=== PATIENT | male | born 1940 | race Caucasian/White ===

== ENCOUNTER 2023-05-27 13:24 | Emergency (ER) | payer MEDICARE, OTHER, SELFPAY ==
[2023-05-27] VITALS (10 sets, daily range): BP systolic 125–207; BP diastolic 78–114
[2023-05-27 14:34] LABS: % Basophils 0.7 % (0-2); % Eosinophils 1.1 % (0-6); % Immature Granulocytes 0.3 % (0-0.5); % Lymphocytes 12.7 % (20.5-51.1); % Monocytes 10.6 % (1.7-9.3); % Neutrophils 74.6 % (42.2-75.2); Absolute Basophils 0.1 10^3/uL (0-0.2); Absolute Eosinophils 0.1 10^3/uL (0-0.7); Absolute Lymphocytes 0.9 10^3/uL (1.2-3.4); Absolute Monocytes 0.7 10^3/uL (0.1-0.6); Absolute Neutrophils 5.2 10^3/uL (1.4-6.5); Hematocrit 42.1 % (39.0-52.0); Hemoglobin 14.1 g/dL (13.0-18.0); Mean Corp Hgb Conc. 33.5 g/dL (33.0-37.0); Mean Corpuscular Hgb 30.6 pg (27.0-31.0); Mean Corpuscular Volume 91.3 fL (80.0-94.0); Nucleated Red Blood Cells % 0 % (-); Platelet Count 197 10^3/uL (130-400); Red Blood Cell Count 4.61 10^6/uL (4.70-6.10); Red Cell Dist. Width 14.2 % (11.5-14.5)
[2023-05-27 14:57] LABS: ALT (SGPT) 18 U/L (0-50); AST (SGOT) 27 U/L (17-59); Albumin 4.3 g/dl (3.5-5.0); Alkaline Phosphatase 102 U/L (38-126); Blood Urea Nitrogen 29 mg/dl (9-20); Calcium 9.3 mg/dl (8.4-10.2); Carbon Dioxide 29 mmol/L (22-30); Chloride 105 mmol/L (98-107); Glucose 136 mg/dl (70-99); Sodium 141 mmol/L (135-145); Total Bilirubin 0.9 mg/dl (0.2-1.3); Total Protein 7.6 g/dl (6.3-8.2); eGFR 50.81
[2023-05-27 15:10] LABS: Troponin I 0.164 ng/ml
--- NOTE | 2023-05-27 17:13 | ED.GENMED ---
History of Present Illness
General
Chief Complaint: Blood Pressure Problem
Time Seen by Provider: 05/27/23 16:16
Travel History
Have you had any contact with someone who has COVID-19?: No
Do you have any symptoms of coronavirus? Fever > 100 degrees, chills, cough, shortness of breath, sore throat, loss of taste or smell, muscle aches, or headache?: No
History of Present Illness
History of Present Illness:
82-year-old male with history of A-fib, chronic congestive heart failure, yhm-dijxhri-[id number] diabetes, carotid stenosis status post bilateral carotid stents presents to the emergency department for evaluation of able undetectably low blood
pressure at his esc[facility] closer office today. Presented for routine endocrine appointment for blood pressure was profoundly low. The patient states he felt fine and had no dizziness or near syncope at that time. Similar event occurred in 2 months
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 The patient currently feels fine and has no complaints
Past History
Past History
ED Past Medical History: Arrthythmia, CAD, NIDDM and Other (Brain aneurysm)
ED Past Surgical History: Brain and Cardiac
Social History
Employment: Employed
Review of Systems
Review of Systems
Allergies reviewed?: Yes
All Other Systems: ROS reviewed and negative except as documented in HPI and ROS
Phy Exam
Physical Exam
Physical Exam:
GEN: Well appearing, NAD, WDWN
HEENT: Oral mucosa moist, no scleral icterus
Cardiac: Regular rate and rhythm, no murmurs
Lung: No respiratory distress, no tachypnea
MSK: No gross deformity or injuries
Skin: Good color, no pallor or jaundice, no rashes
Neuro: AO x3, moves all extremities freely
Psych: Calm, cooperative
Course
Orders/Labs/Results
Orders:
Orders
05/27/23 14:04
Electrocardiogram (*1) Urgent
Reason for Study: Chest Pain
EKG- Treatment ONCE
05/27/23 14:19
Complete Blood Count/With Diff Urgent
Comprehensive Metabolic Panel Urgent
TSH Reflex To Free T4 Urgent
Comment: ADD ON
Troponin I Urgent
05/27/23 16:50
Add On- LAB Urgent
Tests Added?: TSH w reflex
05/27/23 17:09
Troponin I Urgent
Abnormal Lab Results
05/27/23 05/27/23
14:19 17:09
RBC 4.61 L 10^6/uL
(4.70-6.10)
MPV 11.0 H fL
(7.4-10.4)
Absolute Lymphs (auto) 0.9 L 10^3/uL
(1.2-3.4)
Absolute Monos (auto) 0.7 H 10^3/uL
(0.1-0.6)
Lymphocytes % 12.7 L %
(20.5-51.1)
Monocytes % 10.6 H %
(1.7-9.3)
BUN 29 H mg/dl
(9-20)
Creatinine 1.4 H mg/dL
(0.7-1.3)
Glucose 136 H mg/dl
(70-99)
Troponin I 0.164 H* ng/ml 0.162 H* ng/ml
05/27/23 14:19
05/27/23 14:19
Vital Signs
Initial and Last Documented VS:
Initial Vital Signs
Temp Pulse Resp BP Pulse Ox
98.0 F 78 18 125/88 98
05/27/23 14:03 05/27/23 14:03 05/27/23 14:03 05/27/23 14:03 05/27/23 14:03
Last Documented Vital Signs
Temp Pulse Resp BP Pulse Ox
98.0 F 66 22 162/78 98
05/27/23 14:03 05/27/23 20:00 05/27/23 20:00 05/27/23 20:00 05/27/23 14:03
MDM/Problems Addressed
MDM/Problems Addressed:
Patient been clinically stable and asymptomatic emergency department. His blood pressure was noted to be quite elevated in the ER. We did contact [email or web address] for pacemaker interrogation, they are not able to facilitate this at this time however the
patient does have upcoming cardiology follow-up in 2 days and they will arrange for pacer interrogation to be sure that his low blood pressure from earlier today was not correlating with a cardiac dysrhythmia
*Critical Care Note
Total Time (30-74mins, 75-104mins- exclusive of procedures): Not Applicable
ED Attending Note
-
Portions of this chart may have been created with voice recognition software.� Occasional wrong word or��sound alike� substitutions may have occurred due to the inherent limitations of voice recognition software.
Discharge Plan
Departure
Patient Disposition: Home (Routine Discharge)
Date of Disposition: 05/27/23
Time of Disposition: 19:39
Patient with high blood pressure during this ER visit?: Yes
Discharge Problem:
Elevated troponin level not due myocardial infarction
Instructions: BLOOD PRESSURE
Prescriptions:
No Action
isosorbide dinitrate 10 mg Tablet
10 mg PO TID
atorvastatin 40 mg Tablet
40 mg PO QPM
carvedilol 25 mg Tablet
25 mg PO BID
amiodarone 200 mg Tablet
200 mg PO DAILY
famotidine 40 mg Tablet
40 mg PO DAILY
hydralazine 25 mg Tablet
25 mg PO TID
spironolactone 25 mg Tablet
25 mg PO Q48H@0800
repaglinide 1 mg Tablet
1 mg PO BID
ezetimibe 10 mg Tablet
10 mg PO DAILY
Eliquis 2.5 mg Tablet
2.5 mg PO BID
metformin 1,000 mg Tablet
1,000 mg PO BID
clopidogrel [Plavix] 75 mg Tablet
75 mg PO DAILY
Referrals:
Vicky Thomas, DO [Family Provider] -
Activity Restrictions/Additional Instructions:
Discuss your elevated blood pressure with Dr Albright on Thursday
Interventions
Interventions:
*Risk Screen - Suicide Last Done: 05/27/23 16:49
*General Assessment Last Done: 05/27/23 16:49
*Neglect/Abuse Screening Last Done: 05/27/23 16:49
ED- Fall Risk Assessment Last Done: 05/27/23 20:25
*ED COVID-19 Vaccine History Last Done: 05/27/23 20:25
*Nursing Disposition Last Done: 05/27/23 20:59
ED- Cardiac Assessment Last Done: 05/27/23 16:49
ED- Neurological Assessment Last Done: 05/27/23 16:49
ED- Pulmonary Assessment Last Done: 05/27/23 16:49
Discharge Date and Time
Discharge Date/Time: 05/27/23 21:00
[2023-05-27 17:48] LABS: Troponin I 0.162 ng/ml
[2023-05-27 19:06] LABS: TSH Reflex To Free T4 1.57 uIU/ml (0.47-4.68)
== END 2023-05-27 21:00 | disposition home or self-care (01) ==
LOC: EMR 13:24
PROVIDERS: Emergency Medicine; EMERGENCY PHYSICIAN Student in an Organized Health Care Education/Training Program; FAMILY PHYSICIAN Internal Medicine
DX: R79.89 Other specified abnormal findings of blood chemistry (principal); I50.9 Heart failure, unspecified; E11.9 Type 2 diabetes mellitus without complications
CPT/HCPCS: 99284; 80053; 84443; 84484; 85025; 93005

== ENCOUNTER 2023-07-21 13:29 | Outpatient (RCR) | payer MEDICARE, OTHER, SELFPAY | END 2023-07-21 23:59 | disposition home or self-care (01) | LOC: RPT 13:29 | PROVIDERS: ATTENDING PHYSICIAN Internal Medicine | DX: R26.2 Difficulty in walking, not elsewhere classified (principal); Z73.6 Limitation of activities due to disability; R26.89 Other abnormalities of gait and mobility; M62.81 Muscle weakness (generalized) | CPT/HCPCS: 97110; 97112; 97163; 97530 ==

== ENCOUNTER 2023-08-13 13:47 | Outpatient (RCR) | payer MEDICARE, OTHER, SELFPAY | END 2023-08-13 23:59 | disposition home or self-care (01) | LOC: RPT 13:47 | PROVIDERS: ATTENDING PHYSICIAN Internal Medicine | DX: R26.81 Unsteadiness on feet (principal); R42 Dizziness and giddiness; Z73.6 Limitation of activities due to disability | CPT/HCPCS: 97110; 97112; 97530 ==

== ENCOUNTER 2023-08-13 20:47 | Inpatient (IN) | payer MEDICARE, OTHER, SELFPAY ==
[2023-08-13] VITALS (24 sets, daily range): BP systolic 161–203; BP diastolic 85–122; PULSE 54–56; BMI 27.6
[2023-08-13 14:15] LABS: % Basophils 0.4 % (0-2); % Eosinophils 0.3 % (0-6); % Immature Granulocytes 0.3 % (0-0.5); % Monocytes 9.1 % (1.7-9.3); % Neutrophils 78.9 % (42.2-75.2); Absolute Lymphocytes 0.8 10^3/uL (1.2-3.4); Absolute Monocytes 0.7 10^3/uL (0.1-0.6); Absolute Neutrophils 5.7 10^3/uL (1.4-6.5); Hematocrit 36.3 % (39.0-52.0); Hemoglobin 11.7 g/dL (13.0-18.0); Mean Corp Hgb Conc. 32.2 g/dL (33.0-37.0); Mean Corpuscular Hgb 30.5 pg (27.0-31.0); Mean Corpuscular Volume 94.8 fL (80.0-94.0); Mean Platelet Volume 11.5 fL (7.4-10.4); Nucleated Red Blood Cells % 0 % (-); Platelet Count 164 10^3/uL (130-400); Red Blood Cell Count 3.83 10^6/uL (4.70-6.10); Red Cell Dist. Width 15.4 % (11.5-14.5); White Blood Cell Count 7.2 10^3/uL (4.8-10.8)
[2023-08-13 14:30] LABS: ALT (SGPT) 21 U/L (0-50); AST (SGOT) 25 U/L (17-59); Albumin 4.2 g/dl (3.5-5.0); Alkaline Phosphatase 103 U/L (38-126); Blood Urea Nitrogen 28 mg/dl (9-20); Calcium 9.3 mg/dl (8.4-10.2); Carbon Dioxide 25 mmol/L (22-30); Chloride 110 mmol/L (98-107); Glucose 172 mg/dl (70-99); Potassium 4.4 mmol/L (3.5-5.1); Sodium 144 mmol/L (135-145); Total Bilirubin 2.1 mg/dl (0.2-1.3); Total Protein 7.3 g/dl (6.3-8.2); eGFR 55.19
[2023-08-13 18:07] LABS: NT-proBNP 25400 pg/ml
[2023-08-13] MEDS: LASIX 40 MG IV (19:21)
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
--- NOTE | 2023-08-13 19:34 | ED.GENMED ---
History of Present Illness
General
Chief Complaint: Weakness
Source: patient
Exam Limitations: none
Time Seen by Provider: 08/13/23 17:13
Nursing documentation reviewed up to this point in time: agreed with
Travel History
Have you had any contact with someone who has COVID-19?: No
Do you have any symptoms of coronavirus? Fever > 100 degrees, chills, cough, shortness of breath, sore throat, loss of taste or smell, muscle aches, or headache?: No
History of Present Illness
History of Present Illness:
83-year-old male with past medical history of atrial fibrillation and diabetes who presents to the emergency room with his for evaluation of shortness of breath and hypertension. Patient reports that he was doing physical therapy today and
noticed that he was getting more fatigued and short of breath than typical with the exercises. He told this to the therapist who sat him down and checked his vital signs and noted that he was severely hypertensive to the 190s. They consulted with
his primary physician who recommended he go to the emergency room to be assessed. He has not had any chest pain. He denies any coughing. He has chronic mild edema no worse than usual. He denies any other complaints. He denies any known history
of heart failure. He does follow with Dr. Albright at [facility] for cardiology typically.
Past History
Past History
ED Past Medical History: Arrthythmia, CAD, NIDDM and Other (Brain aneurysm)
ED Past Surgical History: Brain and Cardiac
Social History
Employment: Employed
Review of Systems
Review of Systems
All Other Systems: ROS reviewed and negative except as documented in HPI and ROS
Constitutional: Reports fatigue; Denies fever or chills
EENT: Denies sore throat or runny nose
Respiratory: Reports trouble breathing; Denies cough
Cardiac: Denies chest pain, palpitations or syncope
ABD/GI: Denies abdominal pain, nausea or vomiting
: Denies flank pain
Musculoskeletal: Reports edema; Denies neck pain or back pain
Neurological: Denies headache, weakness or numbness
Phy Exam
Physical Exam
Physical Exam:
General: Awake, alert, oriented x3; no acute distress
Head: Normocephalic, atraumatic
Eyes: Conjunctiva normal, sclera anicteric
Throat: Airway intact, handling secretions
Neck: Trachea midline, no JVD noted
Lungs: Rales at the lung bases bilaterally; hypoxic to 80% requiring 2 L nasal cannula
Heart: Regular rate and rhythm, faint systolic murmur
Abd: Soft, non distended, nontender
Neuro: Cranial nerves grossly intact, speech fluid
Skin: no rash
Extremities: Patient has +1 pitting edema in the lower extremities bilaterally; distal extremities are warm and well-perfused
Scores
Heart Failure Risk
Heart Failure Risk Score: Yes
History of Stroke or TIA: No
History of intubation for respiratory distress: No
Heart rate on ED arrival >/= 110: No
SaO2 <90% on arrival on room air: Yes
HR >/=110 during 3min walk test (or too ill to perform test): Yes
ECG has acute ischemic changes: No
Urea >/=12mmol/L (BUN 33.6mg/dL): No
Serum CO2>/=35mmol/L: No
Troponin I or T elevated to [place] Level (0.4mg/dL): No
NT-proBNP >/=5,000ng/L (5,000pg/ml): Yes
HF Risk Score: 4
Admission Status: HIGH RISK 26.1% Consider SNF treatment or admission to hospital
Heart Score for Chest Pain Patients
STEMI patient?: Not applicable
Withdrawal Assessment of Alcohol
Withdrawal Assessment Completed?: Not applicable
Course
Orders/Labs/Results
Orders:
Orders
08/13/23 13:42
Electrocardiogram (*1) Urgent
Reason for Study: Fatigue / Weakness
EKG- Treatment ONCE
08/13/23 14:01
Complete Blood Count/With Diff Urgent
Comprehensive Metabolic Panel Urgent
08/13/23 17:13
CR Chest - 2 Views Urgent
Comment:
Reason For Exam: sob
08/13/23 17:25
NT-proBNP Urgent
08/13/23 18:41
Furosemide [Lasix] 40 mg IV NOW STA
Nitroglycerin 100 mg/250 ml [Nitroglycerin Premix] 100 mg in 250 ml IV NOW
Initial dose in mcg/min, then titrate:: 5
Titrate to keep:: SBP < 160 mmHg
Titrate by mcg/min:: 5 mcg/min, may increase by 10 mcg/min if dose > 20 mcg/min
Frequency of titrations (minutes):: every 3-5 minutes
Maximum dose in mcg/min:: 200
Begin to taper infusion when:: Remained at goal for 2hrs
Taper by mcg/min:: 5 mcg/min
Frequency of taper (minutes) if patient maintains goal:: 30
Taper to off?: Yes
If infusion off & no longer maintaining goal:: Contact Provider
Abnormal Lab Results
08/13/23
14:01
RBC 3.83 L 10^6/uL
(4.70-6.10)
Hgb 11.7 L g/dL
(13.0-18.0)
Hct 36.3 L %
(39.0-52.0)
MCV 94.8 H fL
(80.0-94.0)
MCHC 32.2 L g/dL
(33.0-37.0)
RDW 15.4 H %
(11.5-14.5)
MPV 11.5 H fL
(7.4-10.4)
Absolute Lymphs (auto) 0.8 L 10^3/uL
(1.2-3.4)
Absolute Monos (auto) 0.7 H 10^3/uL
(0.1-0.6)
Neutrophils % 78.9 H %
(42.2-75.2)
Lymphocytes % 11.0 L %
(20.5-51.1)
Chloride 110 H mmol/L
(98-107)
BUN 28 H mg/dl
(9-20)
Glucose 172 H mg/dl
(70-99)
Total Bilirubin 2.1 H mg/dl
(0.2-1.3)
08/13/23 14:01
08/13/23 14:01
Vital Signs
Initial and Last Documented VS:
Initial Vital Signs
Temp Pulse Resp BP Pulse Ox
37.1 C 78 16 183/100 98
08/13/23 13:39 08/13/23 13:39 08/13/23 13:39 08/13/23 13:39 08/13/23 13:39
Last Documented Vital Signs
Temp Pulse Resp BP Pulse Ox
36.7 C 68 18 186/107 93
08/13/23 19:20 08/13/23 19:21 08/13/23 19:20 08/13/23 19:21 08/13/23 19:28
MDM/Problems Addressed
Differential Diagnosis Includes:
Hypertensive crisis, symptomatic anemia, CHF, pneumonia
MDM/Problems Addressed:
83-year-old male presents for evaluation of shortness of breath and fatigue today associated with severe hypertension. He arrives to us severely hypertensive to 190/100 with hypoxia to 88% requiring 2 L nasal cannula. Physical exam as above. Plan
to place an IV check labs including CBC and CMP, BNP. Will check chest x-ray and EKG. Will monitor closely reassess after the above.
Labs reviewed: CBC shows mild anemia which appears to be essential. His CMP shows no clinically significant abnormalities. His proBNP is greater than 25,000. Chest x-ray shows findings consistent with mild volume overload. Patient remains
severely hypertensive will start on nitroglycerin for blood pressure control. Will provide dose of IV Lasix. Will admit for continued management of hypertensive crisis and acute CHF. Discussed with hospitalist for admission.
Chronic conditions affecting care:
Hypertension
Acute Exacerbation and/or Progression of Chronic Illness:
Hypertensive crisis managed with nitroglycerin
Acute Exacerbation and/or Progression of Chronic Illness: HTN
*Radiology
Radiology exam reviewed: preliminary read by ED provider
*Pulse Oximetry
Patient hypoxic: yes
*EKG
Interpreted by ED Provider?: Yes
Heart Rate: 73
Rate: normal
Rhythm: sinus
[place]: normal axis
Interval: normal interval
QRS Pattern: normal QRS
Ischemia: T-wave inversion (Inferior)
*Critical Care Note
Total Time (30-74mins, 75-104mins- exclusive of procedures): Not Applicable
Data Reviewed
Review of Other/Old Records Reveals: Labs and Records
Source: patient and spouse
Patient Management
Discussion with other providers: Hospitalist (Discussed with hospitalist)
Escalation/DeEscalation of care consider admission/obs:
Admission indicated
ED Attending Note
-
Portions of this chart may have been created with voice recognition software.� Occasional wrong word or��sound alike� substitutions may have occurred due to the inherent limitations of voice recognition software.
Discharge Plan
Departure
Patient Disposition: Admit
Date of Disposition: 08/13/23
Time of Disposition: 18:45
Admit to doctor: Saurabh
Presentation/result/management discussed w/ accepting MD/DO: Hospitalist
Discharge Problem:
CHF (congestive heart failure), Hypertensive crisis
Prescriptions:
No Action
atorvastatin 40 mg Tablet
40 mg PO QPM
carvedilol 25 mg Tablet
25 mg PO BID
amiodarone 200 mg Tablet
200 mg PO DAILY
famotidine 40 mg Tablet
40 mg PO DAILY
repaglinide 1 mg Tablet
1 mg PO BID
ezetimibe 10 mg Tablet
10 mg PO DAILY
Patient Comments:
08/13/2023, last filled on 03/09/2023 for 90-day supply.
Eliquis 2.5 mg Tablet
2.5 mg PO BID
metformin 1,000 mg Tablet
1,000 mg PO BID
Patient Comments:
08/13/2023, last filled on 03/06/2023 for 90-day supply.
clopidogrel [Plavix] 75 mg Tablet
75 mg PO DAILY
fluoride (sodium) [PreviDent 5000 Booster Plus] 1.1 % Paste
1 applic DENTAL DAILY
Entresto 49-51 mg Tablet
1 tab PO Q12H
Referrals:
UNKNOWN - PT DOES,NOT KNOW [Family Provider] -
Interventions
Interventions:
*Risk Screen - Suicide Last Done: 08/13/23 17:12
*General Assessment Last Done: 08/13/23 17:12
*Neglect/Abuse Screening Last Done: 08/13/23 17:12
ED- Fall Risk Assessment Last Done: 08/13/23 17:14
*ED COVID-19 Vaccine History Last Done: 08/13/23 13:39
ED- Cardiac Assessment Last Done: 08/13/23 19:27
ED- Neurological Assessment Last Done: 08/13/23 19:27
ED- Pulmonary Assessment Last Done: 08/13/23 19:28
Discharge Date and Time
Print Language: BENGALI
[2023-08-13] MEDS: NITROGLYCERIN PREMIX 250 IV (19:37)
--- NOTE | 2023-08-13 20:21 | W.PN.UPDATE ---
Update Note
Progress Note Update
This serves as an addendum to H&P written by CIVIL CAD TECH Margaret Shannon
I saw and examined the patient.
The CIVIL CAD TECH's note was reviewed and I agree with the note.
Comment:
Mr. Elia Marie is a 83 yo man with hx CAD s/p PCI, afib on Eliquis, PPM, DM 2, brain aneurysm, infrarenal abdominal aortic aneurysm, hx BASIN OPERATOR shunt sent to the ER from cardiac rehab for low pulse ox and report of pain in legs when walking. He
currently denies chest pain or shortness of breath. States b/l LE swelling chronic. States he is always on Eliquis 2.5mg PO BID
Triage VS: T 37.1C, P 78, RR 16, BP 183/100, SpO2 98%
On exam patient has flat affect, in no acute distress, + bilateral rales and JVP, b/l LE swelling
LABS: WBC 7.2, Hg 11.7, PLT 164, Na 144, K+ 4.4, Cl 110, CO2 25, BUN 28, Cr 1.3, Glucose 172
BNP 75689
EKG: NSR @ 73, prolonged Qtc @ 524, TWI III, AvF
CXR - small bilateral pleural effusion (my read
Acute Heart Failure exacerbation
Acute Hypoxic Respiratory Insufficiency
-s/p Lasix 40mg IV in ER
-admit to tele
-strict I/O, daily weights, fluid restriction
-TTE
-cardiology consult
-trend Troponins
Hypertensive Emergency
-patient started on a nitro gtt in the ER
-will resume his MANAGER FLORAL medications now including Coreg, Entresto and wean nitro discussed with nursing
Lower Extremity Pain with Walking
-will obtain arterial US
Paroxysmal Atrial Fibrillation
Hx PPM
-MANAGER FLORAL Coreg
-MANAGER FLORAL Eliquis - although patient is over 80 yo. His body weight is > 60kg and creatinine < 1.5. I will therefore increase dosing to 5mg PO BID.
DM 2
-hold MANAGER FLORAL metformin for now
-continue MANAGER FLORAL Prandin
-ISS low
-diabetic diet
76 minutes spent on patient evaluation, coordination of care
[2023-08-13] MEDS: ENTRESTO 49 MG/51 MG 1 TAB PO ×2 (21:18→22:02)
[2023-08-13] MEDS: ELIQUIS 5 MG PO (21:18)
[2023-08-13 21:19] LABS: Troponin I 0.361 ng/ml
[2023-08-13] MEDS: COREG 25 MG PO ×2 (21:20→22:01)
[2023-08-13 21:45] LABS: Glucose - Point of Care 133 mg/dl (70-99)
[2023-08-13] MEDS: ENTRESTO 49 MG/51 MG PO ×2 (22:01→23:19)
[2023-08-13] MEDS: ELIQUIS 2.5 MG PO (22:01)
[2023-08-13] MEDS: ELIQUIS PO ×2 (22:01→22:02)
[2023-08-13] MEDS: COREG PO ×2 (22:01→23:17)
--- NOTE | 2023-08-13 23:37 | PTCARENOTE ---
Rec'd pt from ED AAOx3 w/no c/o CP or SOB; Pt able to stand & pivot w/1P contact guard assistance to the bed from stretcher. Pt/ BP 203/120 on arrival to floor w/HR in the 80's. IV Nitro drip infusing as MD ordered through patent R FA IV line. Pt
V-paced on telemetry monitoring. Pt's son and daughter at bedside to assist w/admission questions. Family unaware of pt's PMH of CHF; CHF education booklet given to pt & family. CHF education started w/pt & his adult children for reinforcement. CHF
videos ordered for pt to review. Pt w/call bender within reach & plan of care ongoing.
[2023-08-14] VITALS (15 sets, daily range): BP systolic 127–180; BP diastolic 70–105; PULSE 61–111; O2SAT 98; BMI 27.7
--- NOTE | 2023-08-14 00:55 | PTCARENOTE ---
Pt received (2) doses of Entresto, Coreg, & Eliquis this evening. Nitroglycerin IV drip weaned off by 2340. Pt's VS stable, BP 152/87, HR 50's-60's w/pt V-paced on roof fitter. Admitting Dr iWley advised. All three meds on hold at this time.
Plan of care ongoing.
[2023-08-14 03:42] LABS: % Basophils 0.5 % (0-2); % Eosinophils 1.2 % (0-6); % Immature Granulocytes 0.5 % (0-0.5); % Monocytes 8.6 % (1.7-9.3); % Neutrophils 75.2 % (42.2-75.2); Absolute Eosinophils 0.1 10^3/uL (0-0.7); Absolute Lymphocytes 0.9 10^3/uL (1.2-3.4); Absolute Monocytes 0.5 10^3/uL (0.1-0.6); Absolute Neutrophils 4.6 10^3/uL (1.4-6.5); Hematocrit 32.5 % (39.0-52.0); Hemoglobin 11.1 g/dL (13.0-18.0); Mean Corp Hgb Conc. 34.2 g/dL (33.0-37.0); Mean Corpuscular Hgb 30.7 pg (27.0-31.0); Mean Corpuscular Volume 89.8 fL (80.0-94.0); Mean Platelet Volume 11.5 fL (7.4-10.4); Nucleated Red Blood Cells % 0 % (-); Platelet Count 144 10^3/uL (130-400); Red Blood Cell Count 3.62 10^6/uL (4.70-6.10); Red Cell Dist. Width 15.1 % (11.5-14.5); White Blood Cell Count 6.1 10^3/uL (4.8-10.8)
[2023-08-14 04:17] LABS: ALT (SGPT) 18 U/L (0-50); AST (SGOT) 23 U/L (17-59); Albumin 3.6 g/dl (3.5-5.0); Alkaline Phosphatase 82 U/L (38-126); Blood Urea Nitrogen 26 mg/dl (9-20); Calcium 8.9 mg/dl (8.4-10.2); Carbon Dioxide 25 mmol/L (22-30); Chloride 109 mmol/L (98-107); Estimated Creatinine Clearance 64 ml/min; Glucose 177 mg/dl (70-99); HDL Cholesterol 48 mg/dl; LDL Cholesterol, Calculated 56 mg/dl; Potassium 3.3 mmol/L (3.5-5.1); Sodium 143 mmol/L (135-145); Total Cholesterol 119 mg/dl (50-199); Total Protein 6.6 g/dl (6.3-8.2); Triglyceride 77 mg/dl (10-149); Very Low Density Lipoprotein 15 mg/dl (0-30); eGFR > 60.00
[2023-08-14 04:20] LABS: Troponin I 0.339 ng/ml
[2023-08-14 09:16] LABS: Glucose - Point of Care 120 mg/dl (70-99)
[2023-08-14] MEDS: LASIX 40 MG IV (09:47)
[2023-08-14] MEDS: PEPCID 40 MG PO (09:47)
[2023-08-14] MEDS: PACERONE 200 MG PO (09:47)
[2023-08-14] MEDS: ZETIA 10 MG PO (09:47)
[2023-08-14] MEDS: PRANDIN 1 MG PO ×2 (09:47→15:02)
[2023-08-14 10:28] LABS: Troponin I 0.265 ng/ml
[2023-08-14 11:10] LABS: Glucose - Point of Care 141 mg/dl (70-99)
--- NOTE | 2023-08-14 11:10 | CON.CAR ---
Addendum entered and electronically signed by Tristan Gilliam MD 08/14/23 12:20:
I saw and examined the patient.
The [employer]'s note was reviewed and I agree with the note.
Comment: 83M with possible CM (on GDMT) with severe hypertension presenting with hypoxia. Denies dyspnea.
- Check echo
- Diurese
- unclear antiplatelet/anticoagulant strategy. Presumably clopidogrel is for PCI in August 2022 and apixaban for persistent AF. But AF dose is incorrect. I would move to single agent NOAC August 2023 (12 months)
Original Note:
Consultation
Consultation Request
Date/Time Consultation Requested: 08/14/23 7a
Date/Time Consultation Performed: 08/14/23 10:45a
Requesting Provider: Dr. Wiley
Performing Provider: FRANCK Alvarado for Dr. Gilliam
Reason for Consultation: HTN/HFpEF
Medical History
-
Chief Complaint: pain in legs
History of Present Illness:
Mr. Marie is an 83 yo male (followed by sql server bi developer Dr. Albright) with CAD s/p PCI 08/2022, paroxysmal Afib s/p CV 09/2022 on Amiodarone and Eliquis 2.5mg BID, PPM Biotronik, PAD with CEA, infrarenal abd aortic aneurysm, brain aneurysm 6 years ago
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 He denies any SOB or RUSHING during PT. His CXR shows cardiomegaly and small pleural effusions to suggest mild CHF. He is noted
to be hypertensive as well. He is admitted to the hospitalist service and we are consulted for acute HFpEF and hypertensive emergency.
Past Medical History
Past Medical History: Other (as above)
Past Surgical History: Other (as above)
Social History
Tobacco: Non-Smoker
Alcohol: None
Personal:
Living: With Family
Employment: Retired
Family History
Family History: Reviewed & Not Pertinent
Allergies / Home Medications
Allergy/AdvReac Type Severity Reaction Status Date / Time
No Known Allergies Allergy Verified 08/13/23 13:41
�Medication �Instructions �Recorded �Confirmed �Type
amiodarone 200 mg tablet 200 mg PO DAILY Heart 03/02/23 08/13/23 History
Disease/Condition
apixaban 2.5 mg tablet (Eliquis) 2.5 mg PO BID Blood Clot 03/02/23 08/13/23 History
Prevention/Tx
atorvastatin 40 mg tablet 40 mg PO QPM High Cholesterol 03/02/23 08/13/23 History
carvedilol 25 mg tablet 25 mg PO BID Heart 03/02/23 08/13/23 History
Disease/Condition
ezetimibe 10 mg tablet 10 mg PO DAILY High Cholesterol 03/02/23 08/13/23 History
famotidine 40 mg tablet 40 mg PO DAILY Gastrointestinal 03/02/23 08/13/23 History
Issue
repaglinide 1 mg tablet 1 mg PO BID Diabetes 03/02/23 08/13/23 History
metformin 1,000 mg tablet 1,000 mg PO BID Diabetes 04/09/23 08/13/23 History
clopidogrel 75 mg tablet (Plavix) 75 mg PO DAILY 05/27/23 08/13/23 History
fluoride (sodium) 1.1 % dental 1 applic dental DAILY 08/13/23 08/13/23 History
paste (PreviDent 5000 Booster Plus)
sacubitril 49 mg-valsartan 51 mg 1 tab PO Q12H Heart 08/13/23 08/13/23 History
tablet (Entresto) Disease/Condition
Review of Systems
-
History Source: Patient
All other systems: Negative unless noted
Physical Exam
Vital Signs
Temp Pulse Resp BP Pulse Ox
97.8 F 60 18 151/81 92
08/14/23 11:05 08/14/23 09:47 08/14/23 11:05 08/14/23 09:47 08/14/23 11:05
Lab Results
08/14/23 03:32
08/14/23 03:32
Troponin I 0.265 ng/ml H* 08/14/23 09:45
Sff-U-Krfclsdqzmd Pept 49106 pg/ml 08/13/23 17:25
Physical Exam
General: Well Developed, Well Nourished and No Apparent Distress
HEENT: Normocephalic, Anicteric and Moist Mucous Membranes
Respiratory: Crackles (bibasilar)
Cardiac: S1/S2 and Regular Rhythm
Breast: Deferred by me
GI: Soft, Non Tender and Normal Bowel Sounds
Rectal: Deferred by Provider
Genito-urinary: No Costovertebral Tender
Musculoskeletal: No Clubbing, No Cyanosis and No Edema
Skin: Warm and Dry
Neuro: AO x 3
Hematologic/Lymphatic: No Lymphadenopathy
Psych: Calm
Impression / Plan
-
CHF - acute on chronic.
- presumed reduced EF given medication regimen and cardiomyopathy on cxr.
- small b/l pleural effusions.
- agree with IV Lasix.
- check echo.
- daily weights, I&Os.
Hypertensive emergency - improved BP.
- continue Coreg, Entresto, Lasix.
- daughter states he will occasionally have low BP readings at home.
CAD - s/p PCI 08/2022.
- stable w/o angina.
- EKG w/o ischemia.
Afib - paroxysmal.
- stable in NSR, Apaced.
- on Eliquis 2.5mg BID, dose should be 5mg BID (normal creatinine, age > 80, weight 92.4 kg).
- reviewed Eliquis dosing with patient and daughter Ruma, they verbalized understanding.
HLD - stable on Zetia and Lipitor, continue.
PAD - s/p CEA.
- continue Plavix, Lipitior, Zetia and Eliquis.
Data Reviewed
-
EKG: Tracing Personally Visualized and interpreted (NSR 73 bpm, prolonged QT 524ms)
Radiology: Discussed with Physician (cxr: Cardiomegaly and small pleural effusions to suggest mild CHF.)
Labs: Labs Reviewed by me
Old Records: Reviewed
--- NOTE | 2023-08-14 12:17 | PTCARENOTE ---
Addendum entered by Martina Hopper RN 08/14/23 12:21:
Weaned to RA, spO2 92%
Original Note:
Pt AOx3, no complaints of pain or discomfort. Paced on tele monitor. Went for ultrasound of legs and ECHO today. Call bender within reach.
--- NOTE | 2023-08-14 12:36 | CM ---
spoke to pt in room, he is prev indep, lives with his in a 2 story home with a first floor set up and 2 steps to enter. he has a cane to use if needed. he denies any dc planning needs. plan is for dc to home whem medically stable.
--- NOTE | 2023-08-14 13:55 | W.PN.HOSP.TC ---
Today's Communication/Plan
-
diuresis
resume plavix, eliquis at appropriate dose
echo
Assessment / Plan
Assessment / Plan
Physical Exam
General: Comfortable and Conversant; No Fever or Chills
HEENT: NormoCephalic, Anicteric, Moist mucous membranes, PERRLA and Oxygen
Respiratory: Rales (Bases to mid lungs bilaterally); No Wheezes
Cardiac: S1/S2 and Regular Rhythm; No Murmur, Rub, Gallop or Peripheral Edema
Breast: Deferred by me
GI: Soft, Non Tender, Non Distended, Normal Bowel Sounds and No Hepatosplenomegaly
Genito-urinary: Deferred by me
Musculoskeletal: No Clubbing, No Cyanosis and No Edema
Skin: Warm; No Rash
Neuro: AO x 3, No Motor Deficits, Nonfocal/grossly intact, Cranial Nerves Intact and No Sensory Deficits; No Slurred Speech, Facial Droop or Tremors
Psych: Calm
#Acute hypoxic respiratory failure 2/2 acute on chronic HF (Unknown type - possibly CM).
-Patient follows with Dr. Albright cardiology
-Patient reports that his outpatient cardiac rehab Tuesdays and here at [facility]
-IV Lasix 40 mg given in ER
-Continue IV Lasix 40 mg daily
-Continue Entresto 1 tab p.o. every 12 hours
- F/u echo
- pt/ot/ case mgmt consult
-Appreciate Cards recs
#Hypertensive emergency
-has been non compliant at times in the past
was given x2 dose of meds in last 12 hours
-resume home meds tonight
#Chronic macrocytic anemia
Hgb 11.7 appears stable
follow cbc
#Atrial fibrillation on Eliquis
-Continue Eliquis - increase to 5mg BID; carvedilol 25 mg twice daily
-Continue amiodarone 200 mg daily
-after discussion with Cards - should be placed on single agent NOAC and dc plavix in August (12 months)
#CAD s/p PCI
-unclear antiplt/anticoag regimen
-PCI in August 2022, can cont plavix until august, then switch over to single agent NOAC
-Continue Plavix 75 mg daily, carvedilol 25 mg twice daily, atorvastatin 40 mg every afternoon
#Nonischemic myocardial injury
# Likely secondary to acute heart failure
� Follow-up echo
Cardiology consulted
� Troponin peaked at 0.361
#DM2
-Accu-Cheks with SSI, check HgbA1c
-Continue metformin 1000 mg twice daily
-Continue repaglinide 1 mg p.o. twice daily
#Hypokalemia
-monitor and replete
#Brain aneurysm hx
#Infrarenal abdominal aortic aneurysm hx
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
#possible pneumothorax status post some intervention 5 years ago
DVT prophylaxis
Continue Eliquis
Full code
Anticipated Discharge: 24 - 48 hours
Subjective/Interval History
-
Date of Service: August 14, 2023
feels better, denies dyspnea
Objective Data
-
Labs:
Laboratory Results
08/14/23
03:32
WBC 6.1
Hgb 11.1 L
Hct 32.5 L
Plt Count 144
Sodium 143
Potassium 3.3 L
Chloride 109 H
Carbon Dioxide 25
BUN 26 H
Creatinine 1.0
Glucose 177 H
Calcium 8.9
Total Bilirubin 2.0 H
AST 23
ALT 18
Alkaline Phosphatase 82
Vital Signs:
Vital Signs
Temp Pulse Resp BP Pulse Ox
97.8 F 66 18 179/92 92
08/14/23 11:05 08/14/23 13:30 08/14/23 11:05 08/14/23 11:02 08/14/23 11:05
I&O
08/13/23 08/14/23 08/15/23
06:59 06:59 06:59
Intake Total 480 / 480
Output Total 1200 / 1200 700 / 700
Balance -720 / -720 -700 / -700
Review of Systems
-
History Source: Patient
All other systems: Not reviewed unless documented
Data Reviewed
-
Ultrasound: Image personally visualized and interpreted and Report Reviewed by me
Labs: Labs Reviewed by me
[2023-08-14] MEDS: KCL ELIXIR 40 MEQ PO (15:02)
[2023-08-14 17:02] LABS: Glucose - Point of Care 171 mg/dl (70-99)
--- NOTE | 2023-08-14 17:10 | PTCARENOTE ---
Blood sugar before dinner was 171. Pt refusing insulin at this time. States 'does not use it at home, and do not want to use it here'. Educated on insulin purpose. Pt continues to refuse. Dr Mccormick made aware. Will continue to monitor.
[2023-08-14] MEDS: LIPITOR 40 MG PO (17:26)
[2023-08-14] MEDS: ELIQUIS 5 MG PO (20:57)
[2023-08-14 21:28] LABS: Glucose - Point of Care 120 mg/dl (70-99)
--- NOTE | 2023-08-15 03:00 | PTCARENOTE ---
Pt AAOx3 w/no c/o CP or SOB. Pt's VS stable w/HR in the 50's-60's & BP 140's-150's SBP over 70's-80's DBP. Pt on RA w/O2 sats 95-96%. Discussed ongoing plan of care w/pt & family & addtl CHF teaching w/pt after family left for the night. Answered
pt's questions & emotional support provided. Pt w/call bender within reach & plan of care ongoing.
[2023-08-15 03:45] VITALS: BP 150/87
[2023-08-15 04:14] LABS: % Basophils 0.6 % (0-2); % Eosinophils 3.1 % (0-6); % Immature Granulocytes 0.5 % (0-0.5); % Lymphocytes 14.7 % (20.5-51.1); % Monocytes 8.9 % (1.7-9.3); % Neutrophils 72.2 % (42.2-75.2); Absolute Eosinophils 0.2 10^3/uL (0-0.7); Absolute Lymphocytes 0.9 10^3/uL (1.2-3.4); Absolute Monocytes 0.6 10^3/uL (0.1-0.6); Absolute Neutrophils 4.6 10^3/uL (1.4-6.5); Hematocrit 33.4 % (39.0-52.0); Mean Corp Hgb Conc. 32.9 g/dL (33.0-37.0); Mean Corpuscular Hgb 30.6 pg (27.0-31.0); Mean Corpuscular Volume 92.8 fL (80.0-94.0); Mean Platelet Volume 11.5 fL (7.4-10.4); Nucleated Red Blood Cells % 0 % (-); Platelet Count 156 10^3/uL (130-400); Red Cell Dist. Width 14.8 % (11.5-14.5); White Blood Cell Count 6.4 10^3/uL (4.8-10.8)
[2023-08-15 04:42] LABS: ALT (SGPT) 15 U/L (0-50); AST (SGOT) 20 U/L (17-59); Albumin 3.3 g/dl (3.5-5.0); Alkaline Phosphatase 83 U/L (38-126); Blood Urea Nitrogen 28 mg/dl (9-20); Calcium 8.9 mg/dl (8.4-10.2); Carbon Dioxide 29 mmol/L (22-30); Chloride 104 mmol/L (98-107); Estimated Creatinine Clearance 58 ml/min; Glucose 109 mg/dl (70-99); Potassium 3.5 mmol/L (3.5-5.1); Sodium 142 mmol/L (135-145); Total Bilirubin 1.4 mg/dl (0.2-1.3); Total Protein 6.3 g/dl (6.3-8.2); eGFR > 60.00
[2023-08-15 04:53] VITALS: BMI 27.3
[2023-08-15 07:18] VITALS: BP 173/89
[2023-08-15 07:19] LABS: Glucose - Point of Care 140 mg/dl (70-99)
--- NOTE | 2023-08-15 08:00 | PTCARENOTE ---
resumed care of patient from previous RN. Pt AAOx3 w/no c/o CP or SOB. Pt's VSS V paced with HR 50-60s. hypertensive. coreg remains on hold for low HRs. MDs aware,. Pt on RA w/O2 sats 95-96%. using urinal. appetite fair. +1 lower calm edema.
otherwise no complaints and will continue to monitor.
[2023-08-15] MEDS: PLAVIX 75 MG PO (09:10)
[2023-08-15] MEDS: ELIQUIS 5 MG PO ×2 (09:10→19:25)
[2023-08-15] MEDS: PRANDIN 1 MG PO ×2 (09:10→17:57)
[2023-08-15] MEDS: ZETIA 10 MG PO (09:10)
[2023-08-15] MEDS: LASIX 40 MG IV (09:10)
[2023-08-15] MEDS: PACERONE 200 MG PO (09:10)
[2023-08-15] MEDS: PEPCID PO (09:11)
--- NOTE | 2023-08-15 09:34 | W.PN.CD ---
Today's Communication / Plan
-
Continue IV diuresis
Check copay of SGLT2-I
Impression / Plan
-
Acute on chronic HFrEF
- Echo 08/14/2023: LVEF 40%, global hypo, mod LVH, mod MR, mild-mod TR, ASP 60-65 mmHg,
- small b/l pleural effusions.
- agree with IV Lasix.
- daily weights, I&Os.
- Consider advancing GDMT => SGLT2-I and MRA ([place]). Will check copay of SGLT2-I, pehaps MRA as outpatient
Hypertensive emergency - improved BP
Stable CAD - s/p PCI 08/2022
- One year from PCI have option of stopping Plavix and using just Eliqis at AFib doing for CAD/AF/PAD
Afib - paroxysmal.
- stable in NSR, Apaced.
- Eliquis changed to 5mg BID and pt/family aware (normal creatinine, age > 80, weight 92.4 kg).
HLD - stable on Zetia and Lipitor, continue.
PAD - s/p CEA., continue Plavix, Lipitior, Zetia and Eliquis. One year from PCI have option of stopping Plavix and using just Eliqis at AFib doing for CAD/AF/PAD
Subjective: Feeling better
Physical Exam
Vital Signs/Labs
Vital Signs
Temp Pulse Resp BP Pulse Ox
97.1 F 61 18 150/87 95
08/15/23 07:14 08/15/23 09:10 08/15/23 07:14 08/15/23 03:45 08/15/23 07:14
08/14/23 08/15/23 08/16/23
06:59 06:59 06:59
Actual Weight 92.4 kg 91.3 kg
08/15/23 04:00
08/15/23 04:00
Triglycerides 77 mg/dl (10-149) 08/14/23 03:32
LDL Cholesterol, Calc 56 mg/dl 08/14/23 03:32
VLDL Cholesterol, Calc 15 mg/dl (0-30) 08/14/23 03:32
HDL Cholesterol 48 mg/dl 08/14/23 03:32
08/13/23
17:25
Yeb-N-Ymsqhwnpkox Pept 26631
LAB Results
08/13/23 08/14/23 08/14/23
20:50 03:32 09:45
Troponin I 0.361 H* 0.339 H* 0.265 H*
Physical Exam
Constitutional: No acute distress
EENT: Anicteric
Cardiovascular: Rhythm & rate is regular and Pedal edema is absent
Respiratory: Respiratory effort normal and Lungs clear to auscul.
GI: Soft and Distention absent
Neuro/Psych: Alert
Data Reviewed
-
Date of Service: August 15, 2023
--- NOTE | 2023-08-15 11:28 | CM ---
Addendum entered by Sakshi Jones 08/15/23 11:56:
pt asked to speak to hospitalist Dr Mccormick to explain meds, unsure he wants to pay prices, TT Dr Mccormick.
Original Note:
priced meds with pts pharm- [facility]
Farxiga 10 QD- $140.65/mo
Jardiance 10 QD- $147/mo
pt is in his coverage gap(ike schmitz) and will pay these prices until he reaches the catastrophic phase, then it will come down.
[2023-08-15 11:34] VITALS: BP 164/94
[2023-08-15 11:37] LABS: Glucose - Point of Care 186 mg/dl (70-99)
--- NOTE | 2023-08-15 14:28 | W.PN.HOSP.TC ---
Today's Communication/Plan
-
await cost for SGLT2 and if patient desires to take - along with confirmed plans from cards
Cont IV diuresis for today, close to baseline
Ambulation to assess mobility/RUSHING
Assessment / Plan
Assessment / Plan
Physical Exam
General: Comfortable and Conversant; No Fever or Chills
HEENT: NormoCephalic, Anicteric, Moist mucous membranes, PERRLA and Oxygen
Respiratory: Rales (Bases to mid lungs bilaterally); No Wheezes
Cardiac: S1/S2 and Regular Rhythm; No Murmur, Rub, Gallop or Peripheral Edema
Breast: Deferred by me
GI: Soft, Non Tender, Non Distended, Normal Bowel Sounds and No Hepatosplenomegaly
Genito-urinary: Deferred by me
Musculoskeletal: No Clubbing, No Cyanosis and No Edema
Skin: Warm; No Rash
Neuro: AO x 3, No Motor Deficits, Nonfocal/grossly intact, Cranial Nerves Intact and No Sensory Deficits; No Slurred Speech, Facial Droop or Tremors
Psych: Calm
#Acute hypoxic respiratory failure 2/2 acute on chronic HF (Unknown type - possibly CM).
-Patient follows with Dr. Albright cardiology
-Patient reports that his outpatient cardiac rehab Tuesdays and here at [facility]
-IV Lasix 40 mg given in ER
-Continue IV Lasix 40 mg daily - close to dry weight
-CM engaged for cost of SGLT2
-Continue Entresto 1 tab p.o. every 12 hours
- F/u echo: Moderately reduced left ventricular systolic function. LV ejection fraction is 40%. Moderate concentric left ventricular hypertrophy.
- pt/ot/ case mgmt consult
-Appreciate Cards recs
#Hypertensive emergency
-has been non compliant at times in the past
was given x2 dose of meds in last 12 hours
-resume home meds
#Chronic macrocytic anemia
Hgb 11.7 appears stable
follow cbc
#Atrial fibrillation on Eliquis
-Continue Eliquis - increase to 5mg BID; carvedilol 25 mg twice daily
-Continue amiodarone 200 mg daily
-after discussion with Cards - should be placed on single agent NOAC and dc plavix in August (12 months)
#CAD s/p PCI
-unclear antiplt/anticoag regimen
-PCI in August 2022, can cont plavix until august, then switch over to single agent NOAC
-Continue Plavix 75 mg daily, carvedilol 25 mg twice daily, atorvastatin 40 mg every afternoon
#Nonischemic myocardial injury
# Likely secondary to acute heart failure
� F/u echo: Moderately reduced left ventricular systolic function. LV ejection fraction is 40%. Moderate concentric left ventricular hypertrophy.
Cardiology consulted
� Troponin peaked at 0.361
#DM2
-Accu-Cheks with SSI, check HgbA1c
-Continue metformin 1000 mg twice daily
-Continue repaglinide 1 mg p.o. twice daily
#Hypokalemia
-monitor and replete
#Brain aneurysm hx
#Infrarenal abdominal aortic aneurysm hx
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
#possible pneumothorax status post some intervention 5 years ago
DVT prophylaxis
Continue Eliquis
Full code
Anticipated Discharge: Within 24 hours
Subjective/Interval History
-
Date of Service: August 15, 2023
feeling better
Objective Data
-
Labs:
Laboratory Results
08/15/23
04:00
WBC 6.4
Hgb 11.0 L
Hct 33.4 L
Plt Count 156
Sodium 142
Potassium 3.5
Chloride 104
Carbon Dioxide 29
BUN 28 H
Creatinine 1.1
Glucose 109 H
Calcium 8.9
Total Bilirubin 1.4 H
AST 20
ALT 15
Alkaline Phosphatase 83
Vital Signs:
Vital Signs
Temp Pulse Resp BP Pulse Ox
98.1 F 73 16 150/87 94
08/15/23 11:33 08/15/23 11:33 08/15/23 11:33 08/15/23 03:45 08/15/23 11:33
I&O
08/14/23 08/15/23 08/16/23
06:59 06:59 06:59
Intake Total 480 / 480 1200 / 1200
Output Total 1200 / 1200 1650 / 1650 1425 / 1425
Balance -720 / -720 -450 / -450 -1425 / -1425
Review of Systems
-
History Source: Patient
All other systems: Not reviewed unless documented
Physical Exam
-
General: Well Developed and No Apparent Distress
HEENT: Normocephalic, Atraumatic and Moist Mucous Membranes
Respiratory: Clear to Auscultation
Cardiac: Regular Rhythm and S1/S2; Negative Murmur, Rub or Gallop
GI: Soft, Nontender, Nondistended and Normal Bowel Sounds; Negative Organomegaly
Rectal: Deferred by Provider
Musculoskeletal: No Clubbing, No Cyanosis and No Edema
Skin: Negative Rash
Neuro: Awake, Alert, Oriented and Nonfocal/Grossly Intact
Data Reviewed
-
Ultrasound: Image personally visualized and interpreted and Report Reviewed by me
Labs: Labs Reviewed by me
[2023-08-15 15:28] VITALS: BP 146/92
[2023-08-15 17:18] LABS: Glucose - Point of Care 187 mg/dl (70-99)
[2023-08-15] MEDS: LIPITOR 40 MG PO (17:49)
[2023-08-15 19:19] VITALS: BP 150/87
--- NOTE | 2023-08-15 20:01 | PTCARENOTE ---
Pt rec'd at beginning of shift in bed. No c/o pain. A paced on telemetry. Lungs clear with no cough per pt. sat 97% on R/A. trace ankle edema with + pulses. call bender within reach.
[2023-08-15 22:04] VITALS: BP 148/77
[2023-08-15 22:08] LABS: Glucose - Point of Care 110 mg/dl (70-99)
[2023-08-16 03:19] VITALS: BP 170/97
[2023-08-16 03:46] LABS: % Basophils 0.6 % (0-2); % Immature Granulocytes 0.4 % (0-0.5); % Lymphocytes 13.7 % (20.5-51.1); % Monocytes 9.7 % (1.7-9.3); % Neutrophils 73.6 % (42.2-75.2); Absolute Eosinophils 0.1 10^3/uL (0-0.7); Absolute Monocytes 0.7 10^3/uL (0.1-0.6); Absolute Neutrophils 5.2 10^3/uL (1.4-6.5); Hematocrit 34.3 % (39.0-52.0); Hemoglobin 12.1 g/dL (13.0-18.0); Mean Corp Hgb Conc. 35.3 g/dL (33.0-37.0); Mean Corpuscular Hgb 31.1 pg (27.0-31.0); Mean Corpuscular Volume 88.2 fL (80.0-94.0); Mean Platelet Volume 11.6 fL (7.4-10.4); Nucleated Red Blood Cells % 0 % (-); Platelet Count 176 10^3/uL (130-400); Red Blood Cell Count 3.89 10^6/uL (4.70-6.10); Red Cell Dist. Width 14.8 % (11.5-14.5); White Blood Cell Count 7.1 10^3/uL (4.8-10.8)
[2023-08-16 04:12] LABS: ALT (SGPT) 15 U/L (0-50); AST (SGOT) 22 U/L (17-59); Albumin 3.5 g/dl (3.5-5.0); Alkaline Phosphatase 97 U/L (38-126); Blood Urea Nitrogen 25 mg/dl (9-20); Carbon Dioxide 26 mmol/L (22-30); Chloride 105 mmol/L (98-107); Estimated Creatinine Clearance 64 ml/min; Glucose 102 mg/dl (70-99); Potassium 3.3 mmol/L (3.5-5.1); Sodium 141 mmol/L (135-145); Total Bilirubin 1.2 mg/dl (0.2-1.3); Total Protein 6.6 g/dl (6.3-8.2); eGFR > 60.00
[2023-08-16 04:52] VITALS: BMI 26.8
[2023-08-16] MEDS: KCL 40 MEQ PO (04:53)
--- NOTE | 2023-08-16 05:34 | PTCARENOTE ---
Pt with K+ level 3.3 PA notified KDur 40 meq ordered and given.
[2023-08-16 07:05] VITALS: BP 175/99
[2023-08-16 07:08] LABS: Glucose - Point of Care 128 mg/dl (70-99)
[2023-08-16] MEDS: KCL ELIXIR 40 MEQ PO (09:34)
[2023-08-16] MEDS: PLAVIX 75 MG PO (09:35)
[2023-08-16] MEDS: PEPCID 40 MG PO (09:36)
[2023-08-16] MEDS: PACERONE 200 MG PO (09:36)
[2023-08-16] MEDS: ZETIA 10 MG PO (09:36)
[2023-08-16] MEDS: KCL 20 MEQ PO (09:36)
[2023-08-16] MEDS: PRANDIN 1 MG PO (09:36)
[2023-08-16] MEDS: ELIQUIS 5 MG PO (09:36)
[2023-08-16] MEDS: LASIX 40 MG IV (09:37)
[2023-08-16 11:15] VITALS: BP 158/94
--- NOTE | 2023-08-16 11:44 | W.PN.HOSP.TC ---
Addendum entered and electronically signed by Celso Mccormick MD 08/16/23 15:54:
[id number]
Original Note:
Today's Communication/Plan
-
dc on:
furosemide 40mg daily
Farxiga 10mg daily
Resume Entresto and Coreg
BMP in 1 week with pcp/cardiology
Assessment / Plan
Assessment / Plan
Physical Exam
General: Comfortable and Conversant; No Fever or Chills
HEENT: NormoCephalic, Anicteric, Moist mucous membranes, PERRLA and Oxygen
Respiratory: Rales (Bases to mid lungs bilaterally); No Wheezes
Cardiac: S1/S2 and Regular Rhythm; No Murmur, Rub, Gallop or Peripheral Edema
Breast: Deferred by me
GI: Soft, Non Tender, Non Distended, Normal Bowel Sounds and No Hepatosplenomegaly
Genito-urinary: Deferred by me
Musculoskeletal: No Clubbing, No Cyanosis and No Edema
Skin: Warm; No Rash
Neuro: AO x 3, No Motor Deficits, Nonfocal/grossly intact, Cranial Nerves Intact and No Sensory Deficits; No Slurred Speech, Facial Droop or Tremors
Psych: Calm
#Acute hypoxic respiratory failure 2/2 acute on chronic HF (Unknown type - possibly CM).
-Patient follows with Dr. Jose Ramon serrano
-Patient reports that his outpatient cardiac rehab Tuesdays and here at [facility]
-IV Lasix 40 mg given in ER
- switch over to p.o. Lasix 40 mg daily
� Follow-up BMP in 1 week with PCP/cardiology
-Start Farxiga
-Continue Entresto 1 tab p.o. every 12 hours upon discharge, resume Coreg on discharge
- F/u echo: Moderately reduced left ventricular systolic function. LV ejection fraction is 40%. Moderate concentric left ventricular hypertrophy.
- pt/ot/ case mgmt consult
-Appreciate Cards recs
#Hypertensive emergency
-has been non compliant at times in the past
was given x2 dose of meds in last 12 hours
-resume home meds
#Chronic macrocytic anemia
Hgb 11.7 appears stable
follow cbc
#Atrial fibrillation on Eliquis
-Continue Eliquis - increase to 5mg BID; carvedilol 25 mg twice daily
-Continue amiodarone 200 mg daily
-after discussion with Cards - should be placed on single agent NOAC and dc plavix in August (12 months)
#CAD s/p PCI
-unclear antiplt/anticoag regimen
-PCI in August 2022, can cont plavix until august, then switch over to single agent NOAC
-Continue Plavix 75 mg daily, carvedilol 25 mg twice daily, atorvastatin 40 mg every afternoon
#Nonischemic myocardial injury
# Likely secondary to acute heart failure
� F/u echo: Moderately reduced left ventricular systolic function. LV ejection fraction is 40%. Moderate concentric left ventricular hypertrophy.
Cardiology consulted
� Troponin peaked at 0.361
#DM2
-Accu-Cheks with SSI, check HgbA1c
-Continue metformin 1000 mg twice daily
-Continue repaglinide 1 mg p.o. twice daily
#Hypokalemia
-monitor and replete
f/u bmp in 1 week with pcp
#Brain aneurysm hx
#Infrarenal abdominal aortic aneurysm hx
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
#possible pneumothorax status post some intervention 5 years ago
DVT prophylaxis
Continue Eliquis
Full code
More than 30 minutes spent in discharge including
Final examination of the patient
Summarizing hospital stay
Instructions for continuing care to all relevant caregivers
Preparation of discharge records, prescriptions, and referral forms
Total time spent (35 in minutes):
Anticipated Discharge: Today
Subjective/Interval History
-
Date of Service: August 16, 2023
Feels better, now back to dry weight
Objective Data
-
Labs:
Laboratory Results
08/16/23
03:26
WBC 7.1
Hgb 12.1 L
Hct 34.3 L
Plt Count 176
Sodium 141
Potassium 3.3 L
Chloride 105
Carbon Dioxide 26
BUN 25 H
Creatinine 1.0
Glucose 102 H
Calcium 9.0
Total Bilirubin 1.2
AST 22
ALT 15
Alkaline Phosphatase 97
Vital Signs:
Vital Signs
Temp Pulse Resp BP Pulse Ox
98.4 F 68 20 175/99 95
08/16/23 11:14 08/16/23 09:37 08/16/23 11:14 08/16/23 09:37 08/16/23 11:14
I&O
08/15/23 08/16/23 08/17/23
06:59 06:59 06:59
Intake Total 1200 / 1200
Output Total 1650 / 1650 2375 / 2375 200 / 200
Balance -450 / -450 -2375 / -2375 -200 / -200
Review of Systems
-
History Source: Patient
All other systems: Not reviewed unless documented
Physical Exam
-
General: Well Developed and No Apparent Distress
HEENT: Normocephalic, Atraumatic and Moist Mucous Membranes
Respiratory: Clear to Auscultation
Cardiac: Regular Rhythm and S1/S2; Negative Murmur, Rub or Gallop
GI: Soft, Nontender, Nondistended and Normal Bowel Sounds; Negative Organomegaly
Rectal: Deferred by Provider
Musculoskeletal: No Clubbing, No Cyanosis and No Edema
Skin: Negative Rash
Neuro: Awake, Alert, Oriented and Nonfocal/Grossly Intact
Data Reviewed
-
Ultrasound: Image personally visualized and interpreted and Report Reviewed by me
Labs: Labs Reviewed by me
[2023-08-16 12:12] LABS: Glucose - Point of Care 195 mg/dl (70-99)
== END 2023-08-16 14:40 | disposition home health service (06) | DRG 291 ==
LOC: IVU 20:47
PROVIDERS: Clinical Nurse Specialist Family Health; ADMITTING PHYSICIAN Student in an Organized Health Care Education/Training Program; ATTENDING PHYSICIAN Internal Medicine; CONSULT PHYSICIAN Internal Medicine Cardiovascular Disease; EMERGENCY PHYSICIAN Emergency Medicine
DX: I50.33 Acute on chronic diastolic (congestive) heart failure (principal); J96.01 Acute respiratory failure with hypoxia; I16.1 Hypertensive emergency; I48.19 Other persistent atrial fibrillation; I5A Non-ischemic myocardial injury (non-traumatic); I42.9 Cardiomyopathy, unspecified; D53.9 Nutritional anemia, unspecified; Z79.01 Long term (current) use of anticoagulants; I25.10 Atherosclerotic heart disease of native coronary artery without angina pectoris; Z95.5 Presence of coronary angioplasty implant and graft; E11.9 Type 2 diabetes mellitus without complications; I50.23 Acute on chronic systolic (congestive) heart failure; E78.00 Pure hypercholesterolemia, unspecified; E87.6 Hypokalemia; Z91.199 Patient's noncompliance with other medical treatment and regimen due to unspecified reason
CPT/HCPCS: 71046; 80053; 80061; 82962; 83036; 83880; 84484; 85025; 93005; 93306; 93922; 93925; 96374; 96375; 97162; 97166; 99285

== ENCOUNTER 2023-10-20 13:03 | Outpatient (RCR) | payer MEDICARE, OTHER, SELFPAY | END 2023-10-20 23:59 | disposition home or self-care (01) | LOC: RPT 13:03 | PROVIDERS: ATTENDING PHYSICIAN Internal Medicine | DX: R26.89 Other abnormalities of gait and mobility (principal); R53.83 Other fatigue; M62.81 Muscle weakness (generalized) | CPT/HCPCS: 97110; 97162; 97530 ==

== ENCOUNTER 2023-11-19 12:51 | Outpatient (RCR) | payer MEDICARE, OTHER, SELFPAY | END 2023-11-19 23:59 | disposition home or self-care (01) | LOC: RPT 12:51 | PROVIDERS: ATTENDING PHYSICIAN Internal Medicine | DX: R26.89 Other abnormalities of gait and mobility (principal); Z73.6 Limitation of activities due to disability | CPT/HCPCS: 15738; 35860; 35879; 35903; 97110; 97530 ==

== ENCOUNTER 2023-12-17 12:50 | Outpatient (RCR) | payer MEDICARE, OTHER, SELFPAY | END 2023-12-17 23:59 | disposition home or self-care (01) | LOC: RPT 12:50 | PROVIDERS: ATTENDING PHYSICIAN Internal Medicine | DX: R26.89 Other abnormalities of gait and mobility (principal); Z73.6 Limitation of activities due to disability; R26.2 Difficulty in walking, not elsewhere classified; M62.81 Muscle weakness (generalized) | CPT/HCPCS: 97110; 97530 ==

== ENCOUNTER 2024-01-07 12:47 | Outpatient (RCR) | payer MEDICARE, OTHER, SELFPAY | END 2024-01-21 11:12 | disposition home or self-care (01) | LOC: RPT 12:47 | PROVIDERS: ATTENDING PHYSICIAN Internal Medicine | DX: R26.89 Other abnormalities of gait and mobility (principal); Z73.6 Limitation of activities due to disability | CPT/HCPCS: 97110; 97530 ==

== ENCOUNTER 2024-07-23 11:02 | Inpatient (IN) | payer MEDICARE, OTHER, SELFPAY ==
[2024-07-21 20:30] VITALS: BP 149/73
[2024-07-21 20:50] LABS: % Basophils 0.6 % (0-2); % Eosinophils 1.9 % (0-6); % Immature Granulocytes 0.5 % (0-0.5); % Lymphocytes 14.2 % (20.5-51.1); % Monocytes 8.4 % (1.7-9.3); % Neutrophils 74.4 % (42.2-75.2); Absolute Eosinophils 0.1 10^3/uL (0-0.7); Absolute Lymphocytes 0.9 10^3/uL (1.2-3.4); Absolute Monocytes 0.5 10^3/uL (0.1-0.6); Absolute Neutrophils 4.6 10^3/uL (1.4-6.5); Hematocrit 31.5 % (39.0-52.0); Hemoglobin 10.5 g/dL (13.0-18.0); Mean Corp Hgb Conc. 33.3 g/dL (33.0-37.0); Mean Corpuscular Hgb 31.3 pg (27.0-31.0); Mean Platelet Volume 11.3 fL (7.4-10.4); Nucleated Red Blood Cells % 0 % (-); Platelet Count 171 10^3/uL (130-400); Red Blood Cell Count 3.35 10^6/uL (4.70-6.10); Red Cell Dist. Width 15.4 % (11.5-14.5); White Blood Cell Count 6.2 10^3/uL (4.8-10.8)
[2024-07-21 21:08] LABS: NT-proBNP 18500 pg/ml
[2024-07-21 21:11] LABS: ALT (SGPT) 21 U/L (0-50); AST (SGOT) 23 U/L (17-59); Albumin 4.3 g/dl (3.5-5.0); Alkaline Phosphatase 71 U/L (38-126); Blood Urea Nitrogen 38 mg/dl (9-20); Calcium 8.9 mg/dl (8.4-10.2); Carbon Dioxide 26 mmol/L (22-30); Chloride 105 mmol/L (98-107); Glucose 168 mg/dl (70-99); Potassium 3.7 mmol/L (3.5-5.1); Sodium 145 mmol/L (135-145); Total Bilirubin 1.4 mg/dl (0.2-1.3); Total Protein 7.3 g/dl (6.3-8.2); eGFR 50.18
[2024-07-22] VITALS (12 sets, daily range): BP systolic 120–173; BP diastolic 64–92; PULSE 65–74; O2SAT 95; BMI 28.2
[2024-07-22 00:19] LABS: Urine Albumin 2+ (Neg - Trace); Urine Bilirubin Negative (Negative); Urine Character Clear (Clear); Urine Color Yellow; Urine Glucose Negative (Negative); Urine Ketone Negative (Negative); Urine Leukocyte Negative (Negative); Urine Nitrite Negative (Negative); Urine Occult Blood Negative (Negative); Urine Urobilinogen 1+ (Neg - 1+)
--- NOTE | 2024-07-22 00:21 | ED.GENMED ---
History of Present Illness
General
Chief Complaint: Fatigue
Time Seen by Provider: 07/21/24 23:11
History of Present Illness
History of Present Illness:
84-year-old male with history of hypertension, CHF, history of aneurysm with shunt presenting for generalized weakness. Patient notes in the past few weeks he has been having frequent falls and generally feeling unwell. He has had issues getting
around his house. and patient are concerned for CHF. He denies any swelling to his lower extremities. He denies chest pain or difficulty breathing. He denies fever. He denies abdominal pain or GI symptoms. He denies urinary complaints.
He is not on any blood thinners. Reports last fall was 2 weeks ago, did not hit his head. Denies additional acute medical complaint
Past History
Past History
ED Past Medical History: Arrthythmia, CAD, NIDDM and Other (Brain aneurysm)
ED Past Surgical History: Brain and Cardiac
Social History
Employment: Employed
Phy Exam
Physical Exam
Physical Exam:
General: Well-appearing, no clinical signs of dehydration, nontoxic and in no acute distress
HEENT: protecting airway
Neck: appears supple
CV: Normal heart rate, regular rhythm
Resp: No accessory muscle use, no increased work of breathing, lungs clear to auscultation bilaterally
Abd: Soft and non-distended, no tenderness to palpation
Extremities: No deformities, no swelling
Neuro: alert, no focal neurologic deficit
: deferred
Rectal: deferred
Psych: Normal affect
Skin: Intact
Course
Orders/Labs/Results
Orders:
Orders
07/21/24 20:24
EKG [Electrocardiogram (*1)] Urgent
Reason for Study: Fatigue / Weakness
07/21/24 20:25
EKG- Treatment ONCE
07/21/24 20:39
BNP [NT-proBNP] Urgent
CMP [Comprehensive Metabolic Panel] Urgent
07/21/24 20:40
CBC/With Diff [Complete Blood Count/With Diff] Urgent
07/21/24 23:26
CR Chest - 2 Views Urgent
Comment:
Reason For Exam: weakness
07/21/24 23:42
Urinalysis Reflex To Culture Urgent
Date Specimen was Collected: 07/22/24
Time Specimen was Collected: 00:02
07/21/24 23:43
CT Head W/o Iv Contrast Urgent
Comment:
Reason For Exam: weakness, frequent falls, hx shunt
07/22/24 00:10
Urine Microscopic Reflex Cult Urgent
07/22/24 01:20
0.9% Sodium Chloride 500 ml [Nss] 500 ml IV BOLUS
Abnormal Lab Results
07/21/24 07/21/24 07/22/24
20:39 20:40 00:10
RBC 3.35 L 10^6/uL
(4.70-6.10)
Hgb 10.5 L g/dL
(13.0-18.0)
Hct 31.5 L %
(39.0-52.0)
MCH 31.3 H pg
(27.0-31.0)
RDW 15.4 H %
(11.5-14.5)
MPV 11.3 H fL
(7.4-10.4)
Absolute Lymphs (auto) 0.9 L 10^3/uL
(1.2-3.4)
Lymphocytes % 14.2 L %
(20.5-51.1)
BUN 38 H mg/dl
(9-20)
Creatinine 1.4 H mg/dL
(0.7-1.3)
Glucose 168 H mg/dl
(70-99)
Total Bilirubin 1.4 H mg/dl
(0.2-1.3)
Urine Albumin (Reflex) 2+ A
(Neg - Trace)
07/21/24 20:40
07/21/24 20:39
Vital Signs
Initial and Last Documented VS:
Initial Vital Signs
Temp Pulse Resp BP Pulse Ox
98.7 F 66 17 149/73 93
07/21/24 20:30 07/21/24 20:30 07/21/24 20:30 07/21/24 20:30 07/21/24 20:30
Last Documented Vital Signs
Temp Pulse Resp BP Pulse Ox
98.7 F 68 24 152/74 95
07/21/24 20:30 07/22/24 01:15 07/22/24 01:15 07/22/24 01:00 07/22/24 01:15
MDM/Problems Addressed
MDM/Problems Addressed:
84-year-old male with history of CHF, hypertension, hyperlipidemia presenting to the emergency department for generalized weakness. Vital signs are normal.
On exam patient is resting comfortably, no acute distress. Patient is concerned that his symptoms are from his CHF. No present respiratory distress. No signs of volume overload. Patient had laboratory analysis obtained prior to my assessment,
elevated BNP, however does not appear significantly changed from prior. Will add on chest x-ray imaging. Patient does appear slightly pale, so anemia is a consideration, however hemoglobin without significant drop. EKG obtained, nonischemic, no
arrhythmia. Patient without chest pain, without concern for ACS. Will also check urinalysis to rule out urinary tract infection. Given history of shot and frequent falls, will also obtain CT brain imaging
01:20 -patient's labs do show mild ANA MARIA indicating mild dehydration. CT without acute intracranial abnormality. At this time given patient's progressive weakness and fatigue, feel unsafe disposition home/fall risk. Will admit for continued cardiac
monitoring, cardiac consultation, PT/OT
*EKG
Interpreted by ED Provider?: Yes
EKG Intrepretation Date: 07/22/24
EKG Intrepretation Time: 00:26
Interpretation: normal
Comparison EKG: no changes (08/13/23)
Heart Rate: 70
Rate: normal
Rhythm: sinus
[place]: normal axis
Interval: long QT
QRS Pattern: normal QRS
Ischemia: no ischemia
*Critical Care Note
Total Time (30-74mins, 75-104mins- exclusive of procedures): Not Applicable
ED Attending Note
-
Portions of this chart may have been created with voice recognition software.� Occasional wrong word or��sound alike� substitutions may have occurred due to the inherent limitations of voice recognition software.
Discharge Plan
Departure
Prescriptions:
No Action
atorvastatin 40 mg Tablet
40 mg PO QPM
carvedilol 25 mg Tablet
25 mg PO BID
amiodarone 200 mg Tablet
200 mg PO DAILY
famotidine 40 mg Tablet
40 mg PO DAILY
repaglinide 1 mg Tablet
1 mg PO BID
ezetimibe 10 mg Tablet
10 mg PO DAILY
Patient Comments:
08/13/2023, last filled on 03/09/2023 for 90-day supply.
metformin 1,000 mg Tablet
1,000 mg PO BID
Patient Comments:
08/13/2023, last filled on 03/06/2023 for 90-day supply.
fluoride (sodium) [PreviDent 5000 Booster Plus] 1.1 % Paste
1 applic DENTAL DAILY
Entresto 49-51 mg Tablet
1 tab PO Q12H
Eliquis 5 mg Tablet
5 mg PO BID 30 Days Qty: 60 0RF
polyethylene glycol 3350 [HealthyLax] 17 gram Powder In Packet
17 g PO DAILYPRN PRN (Reason: constipation) Qty: 0 0RF
clopidogrel [Plavix] 75 mg Tablet
75 mg PO DAILY Qty: 0 0RF
Rx Instructions:
should re-engage territory sales representative in August for discontinuation and for solely being placed on Apixaban alone
furosemide 40 mg tablet
40 mg PO DAILY Qty: 30 0RF
dapagliflozin propanediol [Farxiga] 10 mg tablet
10 mg PO DAILY 30 Days Qty: 30 0RF
Referrals:
Vicky Thomas DO [Family Provider] -
Interventions
Interventions:
*Risk Screen - Suicide Last Done: 07/21/24 20:30
*General Assessment Last Done: 07/21/24 20:30
*Neglect/Abuse Screening Last Done: 07/21/24 20:30
Discharge Date and Time
Print Language: CHADIAN
[2024-07-22] MEDS: NSS 500 IV (01:45)
[2024-07-22 01:48] LABS: Urine Amorphous Seen; Urine Bacteria Many (Negative); Urine Mucus Moderate; Urine Red Blood Cell 0-2 /HPF (0-2); Urine Squamous Cell >30 /LPF (Few); Urine White Cell 0-2 /HPF (0-5)
--- NOTE | 2024-07-22 03:20 | HPS.HSE ---
Family Physician
-
Family Physician: Vicky Thomas
Chief Complaint
-
Weakness / Falls
History of Present Illness
Patient is an 84y M with PMH significant for ASCVD, A-Fib and cerebral aneurysm s/p coil and NEUROPSYCHOLOGY SERVICE DIRECTOR shunt who presents to ED complaining of weakness / recent falls. Patient states that he had a fall about two weeks ago outside. He fell while trying
to step up over a curb. He denies striking his head or any LOC. He required assistance to get back to his feet. Patient states that he has been using a cane since that fall. He continues to feel unsteady on his feet - though he denies any
additional falls since that time. He was seen by His Corner Cutter one week ago and his Eliquis was discontinued given concerns re: falling. He denies any other recent medication changes.
Patient denies any chest pain, palpitations, dyspnea, cough, fevers / chills, etc.
Medical History
Past Medical History
Past Medical History: Reports Other
Additional Past Medical History:
ASCVD
Cerebral Aneurysm
Atrial Fibrillation
Hypertension
Chronic HFpEF
DM-II
AAA
Past Surgical History: Reports Other
Additional Past Surgical History:
PTCA with Stent
Aneurysm Coil / NEUROPSYCHOLOGY SERVICE DIRECTOR Shunt
PPM Placement
Bilateral LESTER
Social History
Tobacco: Non-smoker
Alcohol: None
Drug: None
Family History
Family History: Not pertinent
Allergies / Home Medications
Allergies reflects when Allergies were last updated in [employer].
Home Medications with original date entered in [employer]
Allergy/Medication List:
Allergies
Allergy/AdvReac Type Severity Reaction Status Date / Time
No Known Allergies Allergy Verified 08/13/23 13:41
Home Medications
amiodarone 200 mg tablet 200 mg PO DAILY Heart Disease/Condition 03/02/23
atorvastatin 40 mg tablet 40 mg PO QPM High Cholesterol 03/02/23
carvedilol 25 mg tablet 25 mg PO BID Heart Disease/Condition 03/02/23
ezetimibe 10 mg tablet 10 mg PO DAILY High Cholesterol 03/02/23
famotidine 40 mg tablet 40 mg PO DAILY Gastrointestinal Issue 03/02/23
metformin 1,000 mg tablet 1,000 mg PO BID Diabetes 04/09/23
fluoride (sodium) 1.1 % dental paste (PreviDent 5000 Booster Plus) 1 applic dental DAILY 08/13/23
sacubitril 49 mg-valsartan 51 mg tablet (Entresto) 1 tab PO Q12H Heart Disease/Condition 08/13/23
clopidogrel 75 mg tablet (Plavix) 75 mg PO DAILY #0 tabs 08/15/23
amlodipine 5 mg tablet 5 mg PO DAILY 07/22/24
cholecalciferol (vitamin D3) 25 mcg (1,000 unit) tablet 25 mcg PO DAILY 07/22/24
furosemide 40 mg tablet 40 mg PO SUMOTUTHFR 07/22/24
repaglinide 0.5 mg tablet 0.5 mg PO BID 07/22/24
tramadol 50 mg tablet 50 mg PO Q6H PRN Pain 07/22/24
Review of Systems
-
History Source: Patient
A 12 point ROS was completed and negative except as noted: Yes
Constitutional: Reports Fatigue; Denies Fever, Weight Gain, Weight Loss or Chills
EENT: Denies Sore Throat
Respiratory: Denies Cough or Trouble Breathing
Cardiac: Denies Chest Pain or Palpitations
Abdomen/GI: Denies Abdominal Pain, Nausea, Vomiting or Diarrhea
: Denies Dysuria, Frequency or Flank Pain
Musculoskeletal: Denies Joint Pain or Edema
Neurological: Reports Weakness; Denies Dizzy or Headache
Psych: Denies Depression or Anxiety
Physical Exam
Vital Signs
Vital Signs
Temp Pulse Resp BP Pulse Ox
98.7 F 68 26 152/74 97
07/21/24 20:30 07/22/24 02:45 07/22/24 02:45 07/22/24 01:00 07/22/24 02:45
Physical Exam
General: Other (84y M in no acute distress.)
HEENT: Moist mucous membranes and Other (No JVD. Pos HJR. Post surgical changes R scalp.)
Respiratory: Other (Few bibasilar rales.)
Cardiac: S1/S2 and Irregular Rhythm; No Murmur
GI: Soft, Non Tender, Non Distended and Normal Bowel Sounds
Musculoskeletal: No Clubbing, No Cyanosis and Other (1+ pitting edema - R > L LE.)
Neuro: AO x 3 and Nonfocal/grossly intact
Laboratory Results
-
07/21/24 20:40
07/21/24 20:39
Laboratory Results
Total Bilirubin 1.4 mg/dl (0.2-1.3) H 07/21/24 20:39
AST 23 U/L (17-59) 07/21/24 20:39
ALT 21 U/L (0-50) 07/21/24 20:39
Alkaline Phosphatase 71 U/L (38-126) 07/21/24 20:39
Impression/Plan
-
A/P: Patient is an 84y M with PMH significant for A-Fib, CHF, ASCVD and DM-II who presents to ED for evaluation of recent weakness and falls.
Ambulatory Dysfunction
Fall at Home
- Observe overnight for further evaluation and treatment.
- Unclear if there is a specific, acute etiology for his weakness.
- PT / OT evaluations in the AM.
- Follow for any new complaints.
ANA MARIA
- SCr = 1.4 compared to known baseline of 1.0.
- ? cardiorenal / due to mild CHF (see below).
- Hold Entresto for now.
- Follow for changes and adjust diuretic regimen as needed.
Chronic HFpEF
- Perhaps mild volume overload based on rales / minimal edema on exam and recent increase in weakness.
- Note that patient presented with similar complaint of fatigue (not dyspnea) on prior admission for CHF.
- Change Lasix to IV route for now and follow I/Os, daily weights, etc.
- Hold Entresto given ANA MARIA as noted above.
- Update Echo.
- Followed as an outpatient by Dr. Albright.
ASCVD
Paroxysmal Atrial Fibrillation
- Stable. Continue Plavix. Eliquis stopped one week ago secondary to fall risk.
- Continue other CV med regimen.
DM-II
- Stable. Hold metformin and repaglinide acutely.
- Follow and cover with SSI as needed.
- Update A1C.
History of Cerebral Aneurysm
- Stable. s/p remote coil and NEUROPSYCHOLOGY SERVICE DIRECTOR shunt.
- CT done in the ED today shows no acute changes.
- Most recent fall was two weeks ago now per patient.
Normocytic Anemia
- Mild decrease from usual baseline. No noted bleeding per patient.
- Check iron studies, etc.
- Follow for changes in H&H.
DVT Prophylaxis: SCDs
Code Status: Full
--- NOTE | 2024-07-22 05:00 | PTCARENOTE ---
Pt admitted to 337-1 from ED, ambulated to bed with standby assist and cane. Pt AAOx3, [place] x 4. VSS. 98% on 2L NC, slight RUSHING, crackles at b/l bases. Bed alarm in place for frequent falls at home. Call bender within reach.
[2024-07-22 06:12] LABS: Hematocrit 27.7 % (39.0-52.0); Hemoglobin 9.4 g/dL (13.0-18.0); Mean Corp Hgb Conc. 33.9 g/dL (33.0-37.0); Mean Corpuscular Hgb 31.5 pg (27.0-31.0); Mean Platelet Volume 11.7 fL (7.4-10.4); Platelet Count 148 10^3/uL (130-400); Red Blood Cell Count 2.98 10^6/uL (4.70-6.10); Red Cell Dist. Width 15.1 % (11.5-14.5)
[2024-07-22 06:43] LABS: Blood Urea Nitrogen 36 mg/dl (9-20); Calcium 8.5 mg/dl (8.4-10.2); Carbon Dioxide 25 mmol/L (22-30); Chloride 110 mmol/L (98-107); Estimated Creatinine Clearance 52 ml/min; Glucose 115 mg/dl (70-99); Iron 54 ug/dl (49-181); Potassium 3.6 mmol/L (3.5-5.1); Sodium 144 mmol/L (135-145); eGFR > 60.00
[2024-07-22 06:52] LABS: Percent Saturation 25 % (20-50); Total Iron Binding Capacity 216 ug/dl (261-462)
[2024-07-22 07:14] LABS: TSH Reflex To Free T4 2.35 uIU/ml (0.47-4.68)
[2024-07-22 07:33] LABS: Vitamin B12 210 pg/ml (239-931)
[2024-07-22 07:59] LABS: Glucose - Point of Care 120 mg/dl (70-99)
--- NOTE | 2024-07-22 08:01 | W.PN.HOSP.TC ---
Today's Communication/Plan
-
CHF exacerbation
Continue IV diuresis
Assessment / Plan
Assessment / Plan
Physical Exam
General: Not in acute distress
HEENT: Moist mucous membranes. No JVD. Pos HJR. Post surgical changes right scalp.
Respiratory: Few bibasilar rales
Cardiac: S1/S2 and Irregular Rhythm
GI: Soft, Non Tender, Non Distended and Normal Bowel Sounds
Musculoskeletal: No Cyanosis and Other (1+ pitting edema - R > L LE.)
Neuro: AAO x 3 and Nonfocal/grossly intact
Assessment/Plan
84 y/o male with past medical history significant for ASCVD, atrial fibrillation, heart failure, type 2 diabetes mellitus and cerebral aneurysm status post coil and WATERWORKS OPERATOR shunt who presented complaining of weakness and recent falls. Patient stated that
he had a fall about two weeks ago prior to presentation.He fell while trying to step up over a curb. He denied striking his head or any loss of consciousness. He required assistance to get back to his feet. Patient stated that he had been using a
cane since that fall. He continues to feel unsteady on his feet - though he denied any additional falls since that time. He was seen by His Heel Blacker one week (prior to presentation) and his Eliquis was discontinued given concerns re: falling. He
denied any other recent medication changes. At the time of admission, patient denied any chest pain, palpitations, dyspnea, cough, fevers / chills, etc.
Ambulatory Dysfunction
Fall at Home
- Unclear if there is a specific, acute etiology for his weakness.
- PT / OT evaluations in the AM.
- Follow for any new complaints.
Acute on Chronic HFpEF
- Perhaps mild volume overload based on rales / minimal edema on exam and recent increase in weakness.
- Note that patient presented with similar complaint of fatigue (not dyspnea) on prior admission for CHF.
- Continue IV Lasix.
- Hold Entresto given ANA MARIA as noted above.
- Updated Echo: Normal left ventricular systolic function. Left ventricular ejection fraction 50-55% by visual assessment. Mild hypokinesis of the basal inferior and inferolateral wall. Normal right ventricular size and function. Moderate mitral
regurgitation.
Mild pulmonary hypertension. When compared directly to the images from 08/14/2023, ejection fraction has improved from 40% to 50 to 55%. Global hypokinesis has improved. While there is persistent hypokinesis of the basal inferior inferior
lateral wall it
does seem improved. Pulmonary pressure has improved and mitral regurgitation remains moderate.
- Followed as an outpatient by Dr. Albright (paper bag press operator at [facility])
ANA MARIA
- SCr = 1.4---->1.2 compared to known baseline of 1.0.
- ? cardiorenal / due to mild CHF (see below).
- Hold Entresto for now.
- Follow for changes and adjust diuretic regimen as needed.
ASCVD
Paroxysmal Atrial Fibrillation
- Stable. Continue Plavix. Eliquis stopped one week prior to presentation given fall risk.
- Continue other CV med regimen.
DM-II
- Stable. Hold metformin and repaglinide acutely.
- Follow and cover with SSI as needed.
- Updated A1C 6.6%
History of Cerebral Aneurysm
- Stable. s/p remote coil and WATERWORKS OPERATOR shunt.
- CT done in the ED today shows no acute changes.
- Most recent fall was two weeks ago now per patient.
Normocytic Anemia
- Mild decrease from usual baseline. No noted bleeding per patient.
- Check iron studies, etc.
- Follow for changes in H&H.
DVT Prophylaxis: SCDs
Code Status: Full Code
Anticipated Discharge: 24 - 48 hours
Subjective/Interval History
-
Date of Service: July 22, 2024
Patient was seen and examined. He denied any chest pain, shortness of breath or any other complaints.
Objective Data
-
Labs:
Laboratory Results
07/21/24 07/21/24 07/22/24
20:39 20:40 05:21
WBC 6.2 6.0
Hgb 10.5 L 9.4 L
Hct 31.5 L 27.7 L
Plt Count 171 148
Sodium 145 144
Potassium 3.7 3.6
Chloride 105 110 H
Carbon Dioxide 26 25
BUN 38 H 36 H
Creatinine 1.4 H 1.2
Glucose 168 H 115 H
Calcium 8.9 8.5
Total Bilirubin 1.4 H
AST 23
ALT 21
Alkaline Phosphatase 71
Vital Signs:
Vital Signs
Temp Pulse Resp BP Pulse Ox
97.7 F 54 16 144/75 97
07/22/24 07:30 07/22/24 07:30 07/22/24 07:30 07/22/24 07:30 07/22/24 07:30
[2024-07-22] MEDS: ZETIA 10 MG PO (09:13)
[2024-07-22] MEDS: COREG 25 MG PO ×2 (09:13→20:55)
[2024-07-22] MEDS: PACERONE 200 MG PO (09:13)
[2024-07-22] MEDS: PEPCID 40 MG PO (09:13)
[2024-07-22] MEDS: CYANOCOBALAMIN 1000 MCG IM (09:14)
[2024-07-22] MEDS: VITAMIN D3 (cholecalciferol) 25 MCG PO (09:14)
[2024-07-22] MEDS: PLAVIX 75 MG PO (09:14)
[2024-07-22] MEDS: LASIX 40 MG IV (09:15)
[2024-07-22 10:21] LABS: Glycohemoglobin (HgbA1c) 6.6 % (4.0-5.6)
[2024-07-22] MEDS: NOVOLOG FLEXPEN-LOW RESISTANCE SC ×2 (10:38→14:24)
[2024-07-22 12:22] LABS: Glucose - Point of Care 205 mg/dl (70-99)
[2024-07-22] MEDS: NOVOLOG FLEXPEN-LOW RESISTANCE 2 UNITS SC ×2 (14:33→17:52)
--- NOTE | 2024-07-22 16:31 | CM ---
CM met with Elia at bedside. Shandra for reviewed and signed. Copy placed in medical record.
PT/OT evaluated Elia and recommending home care services. Elia initially stated he was known to [facility], but then advised that his is looking into home services through their LTC insurance policy, so he wants to hold off on making a
decision about home care services until he speaks with his about their plans.
CM to follow up with pt/ to determine the final plan.
[2024-07-22 16:52] LABS: Glucose - Point of Care 218 mg/dl (70-99)
[2024-07-22] MEDS: LIPITOR 40 MG PO (17:52)
[2024-07-22 21:14] LABS: Glucose - Point of Care 200 mg/dl (70-99)
[2024-07-23 03:40] VITALS: BP 154/83
[2024-07-23 06:05] LABS: Hematocrit 28.7 % (39.0-52.0); Hemoglobin 9.7 g/dL (13.0-18.0); Mean Corp Hgb Conc. 33.8 g/dL (33.0-37.0); Mean Corpuscular Hgb 30.9 pg (27.0-31.0); Mean Corpuscular Volume 91.4 fL (80.0-94.0); Mean Platelet Volume 11.6 fL (7.4-10.4); Platelet Count 172 10^3/uL (130-400); Red Blood Cell Count 3.14 10^6/uL (4.70-6.10); Red Cell Dist. Width 14.9 % (11.5-14.5); White Blood Cell Count 7.1 10^3/uL (4.8-10.8)
[2024-07-23 06:22] LABS: Blood Urea Nitrogen 30 mg/dl (9-20); Calcium 8.6 mg/dl (8.4-10.2); Carbon Dioxide 27 mmol/L (22-30); Chloride 106 mmol/L (98-107); Estimated Creatinine Clearance 52 ml/min; Glucose 119 mg/dl (70-99); Magnesium 1.3 mg/dl (1.6-2.3); Potassium 3.4 mmol/L (3.5-5.1); Sodium 143 mmol/L (135-145); eGFR > 60.00
[2024-07-23 06:49] VITALS: BMI 27.3
[2024-07-23 07:30] VITALS: BP 175/91
[2024-07-23 08:08] LABS: Glucose - Point of Care 154 mg/dl (70-99)
[2024-07-23] MEDS: NOVOLOG FLEXPEN-LOW RESISTANCE 1 UNITS SC ×3 (08:57→17:22)
[2024-07-23] MEDS: PLAVIX 75 MG PO (08:58)
[2024-07-23] MEDS: VITAMIN D3 (cholecalciferol) 25 MCG PO (08:58)
[2024-07-23] MEDS: CYANOCOBALAMIN 1000 MCG IM (08:58)
[2024-07-23] MEDS: ZETIA 10 MG PO (08:58)
[2024-07-23] MEDS: PACERONE 200 MG PO (08:58)
[2024-07-23] MEDS: COREG 25 MG PO (08:58)
[2024-07-23] MEDS: PEPCID 20 MG PO (08:58)
[2024-07-23] MEDS: LASIX 40 MG IV (08:59)
--- NOTE | 2024-07-23 11:01 | W.PN.HOSP.TC ---
Today's Communication/Plan
-
Replace potassium and magnesium
IV Lasix
likely dc Thursday
Assessment / Plan
Assessment / Plan
Physical Exam
General: Not in acute distress
HEENT: Moist mucous membranes. No JVD. Pos HJR. Post surgical changes right scalp.
Respiratory: Few bibasilar rales
Cardiac: S1/S2 and Irregular Rhythm
GI: Soft, Non Tender, Non Distended and Normal Bowel Sounds
Musculoskeletal: No Cyanosis and Other (1+ pitting edema - R > L LE.)
Neuro: AAO x 3 and Nonfocal/grossly intact
Assessment/Plan
84 y/o male with past medical history significant for ASCVD, atrial fibrillation, heart failure, type 2 diabetes mellitus and cerebral aneurysm status post coil and SCIENTIST IMMUNOLOGY shunt who presented complaining of weakness and recent falls. Patient stated that
he had a fall about two weeks ago prior to presentation.He fell while trying to step up over a curb. He denied striking his head or any loss of consciousness. He required assistance to get back to his feet. Patient stated that he had been using a
cane since that fall. He continues to feel unsteady on his feet - though he denied any additional falls since that time. He was seen by His Master Police Detective one week (prior to presentation) and his Eliquis was discontinued given concerns re: falling. He
denied any other recent medication changes. At the time of admission, patient denied any chest pain, palpitations, dyspnea, cough, fevers / chills, etc.
Ambulatory Dysfunction
Fall at Home
- Unclear if there is a specific, acute etiology for his weakness.
- PT / OT evaluations in the AM.
- Follow for any new complaints.
Acute on Chronic HFpEF
- Perhaps mild volume overload based on rales / minimal edema on exam and recent increase in weakness.
- Note that patient presented with similar complaint of fatigue (not dyspnea) on prior admission for CHF.
- Continue IV Lasix.
- Hold Entresto given ANA MARIA as noted above.
- Updated Echo: Normal left ventricular systolic function. Left ventricular ejection fraction 50-55% by visual assessment. Mild hypokinesis of the basal inferior and inferolateral wall. Normal right ventricular size and function. Moderate mitral
regurgitation.
Mild pulmonary hypertension. When compared directly to the images from 08/14/2023, ejection fraction has improved from 40% to 50 to 55%. Global hypokinesis has improved. While there is persistent hypokinesis of the basal inferior inferior
lateral wall it
does seem improved. Pulmonary pressure has improved and mitral regurgitation remains moderate.
- Followed as an outpatient by Dr. Albright (farm mortgage agent at [facility])
ANA MARIA
- SCr = 1.4---->1.2 compared to known baseline of 1.0.
- ? cardiorenal / due to mild CHF (see below).
- Hold Entresto for now.
- Follow for changes and adjust diuretic regimen as needed.
ASCVD
Paroxysmal Atrial Fibrillation
- Stable. Continue Plavix. Eliquis stopped one week prior to presentation given fall risk.
- Continue other CV med regimen.
DM-II
- Stable. Hold metformin and repaglinide acutely.
- Follow and cover with SSI as needed.
- Updated A1C 6.6%
Hypokalemia
Hypomagnesemia
History of Cerebral Aneurysm
- Stable. s/p remote coil and SCIENTIST IMMUNOLOGY shunt.
- CT done in the ED today shows no acute changes.
- Most recent fall was two weeks ago now per patient.
Normocytic Anemia
- Mild decrease from usual baseline. No noted bleeding per patient.
- Check iron studies, etc.
- Follow for changes in H&H.
DVT Prophylaxis: SCDs
Code Status: Full Code
Total time spent to see the patient, examine the patient, review data and lab result, discuss treatment plan with the patient, nursing staff around 55 minutes
Anticipated Discharge: Within 24 hours
Subjective/Interval History
-
Date of Service: July 23, 2024
No chest pain
No sob
Objective Data
-
Labs:
Laboratory Results
07/23/24
05:22
WBC 7.1
Hgb 9.7 L
Hct 28.7 L
Plt Count 172
Sodium 143
Potassium 3.4 L
Chloride 106
Carbon Dioxide 27
BUN 30 H
Creatinine 1.2
Glucose 119 H
Calcium 8.6
Vital Signs:
Vital Signs
Temp Pulse Resp BP Pulse Ox
97.9 F 66 16 175/91 95
07/23/24 07:30 07/23/24 07:30 07/23/24 07:30 07/23/24 07:30 07/23/24 07:30
I&O
07/22/24 07/23/24 07/24/24
06:59 06:59 06:59
Intake Total 240 / 240
Output Total 1570 / 1570
Balance -1330 / -1330
[2024-07-23 11:30] VITALS: BP 140/82; BP 150/95; PULSE 74; PULSE 77
[2024-07-23 12:21] LABS: Glucose - Point of Care 178 mg/dl (70-99)
[2024-07-23] MEDS: MAGNESIUM SULFATE 100 IV (14:06)
[2024-07-23 15:30] VITALS: BP 115/62
[2024-07-23 17:00] LABS: Glucose - Point of Care 191 mg/dl (70-99)
[2024-07-23] MEDS: LIPITOR 40 MG PO (17:22)
[2024-07-23 19:00] VITALS: BP 142/61; BP 143/67; BP 143/79; PULSE 56; PULSE 57; PULSE 60
[2024-07-23 21:45] LABS: Glucose - Point of Care 137 mg/dl (70-99)
[2024-07-23 23:00] VITALS: BP 155/86
[2024-07-24] MEDS: KCL 20 MEQ PO ×2 (00:10→08:35)
[2024-07-24] MEDS: COREG 25 MG PO ×2 (00:10→08:34)
[2024-07-24 03:00] VITALS: BP 164/87
[2024-07-24 07:02] LABS: Blood Urea Nitrogen 27 mg/dl (9-20); Calcium 8.5 mg/dl (8.4-10.2); Carbon Dioxide 24 mmol/L (22-30); Chloride 103 mmol/L (98-107); Estimated Creatinine Clearance 52 ml/min; Glucose 151 mg/dl (70-99); Potassium 3.6 mmol/L (3.5-5.1); Sodium 143 mmol/L (135-145); eGFR > 60.00
[2024-07-24 07:35] VITALS: BP 155/81
[2024-07-24 08:18] LABS: Glucose - Point of Care 156 mg/dl (70-99)
[2024-07-24] MEDS: PACERONE 200 MG PO (08:34)
[2024-07-24] MEDS: LASIX 40 MG IV (08:34)
[2024-07-24] MEDS: PEPCID 20 MG PO (08:34)
[2024-07-24] MEDS: VITAMIN D3 (cholecalciferol) 25 MCG PO (08:34)
[2024-07-24] MEDS: PLAVIX 75 MG PO (08:34)
[2024-07-24] MEDS: ZETIA 10 MG PO (08:34)
[2024-07-24] MEDS: CYANOCOBALAMIN 1000 MCG IM (08:35)
[2024-07-24] MEDS: NOVOLOG FLEXPEN-LOW RESISTANCE 1 UNITS SC ×2 (08:35→11:52)
--- NOTE | 2024-07-24 08:58 | W.PN.HOSP.TC ---
Today's Communication/Plan
-
dc
Assessment / Plan
Assessment / Plan
Physical Exam
General: Not in acute distress
HEENT: Moist mucous membranes. No JVD. Pos HJR. Post surgical changes right scalp.
Respiratory: no rales.
Cardiac: S1/S2, + murmur.
GI: Soft, Non Tender, Non Distended
Musculoskeletal: No Cyanosis
Neuro: AAO x 3 and Nonfocal/grossly intact
Psych: calm
Assessment/Plan
84 y/o male with past medical history significant for ASCVD, atrial fibrillation, heart failure, type 2 diabetes mellitus and cerebral aneurysm status post coil and CORPORATE ACCOUNTANT shunt who presented complaining of weakness and recent falls. Patient stated that
he had a fall about two weeks ago prior to presentation.He fell while trying to step up over a curb. He denied striking his head or any loss of consciousness. He required assistance to get back to his feet. Patient stated that he had been using a
cane since that fall. He continues to feel unsteady on his feet - though he denied any additional falls since that time. He was seen by [facility] one week (prior to presentation) and his Eliquis was discontinued given concerns re: falling. He
denied any other recent medication changes. At the time of admission, patient denied any chest pain, palpitations, dyspnea, cough, fevers / chills, etc.
Ambulatory Dysfunction
Fall at Home
- Suspect related to acute on chronic gait dysfunction.
- PT / OT evaluation recommended home PT, pt reports h wants to go home, feels comfortable/ safe at home.
Acute on Chronic HFpEF
- Perhaps mild volume overload based on rales / minimal edema on exam and recent increase in weakness.
- Note that patient presented with similar complaint of fatigue (not dyspnea) on prior admission for CHF.
- Continue IV Lasix.
- Hold Entresto given ANA MARIA as noted above.
- Updated Echo: Normal left ventricular systolic function. Left ventricular ejection fraction 50-55% by visual assessment. Mild hypokinesis of the basal inferior and inferolateral wall. Normal right ventricular size and function. Moderate mitral
regurgitation.
Mild pulmonary hypertension. When compared directly to the images from 08/14/2023, ejection fraction has improved from 40% to 50 to 55%. Global hypokinesis has improved. While there is persistent hypokinesis of the basal inferior inferior
lateral wall it
does seem improved. Pulmonary pressure has improved and mitral regurgitation remains moderate.
- Followed as an outpatient by Dr. Albright (multimedia authoring specialist at [facility])
ANA MARIA
- SCr = 1.4---->1.2 compared to known baseline of 1.0.
- cardiorenal / due to mild CHF (see below).
- Hold Entresto for now.
- Follow for changes and adjust diuretic regimen as needed.
ASCVD
Paroxysmal Atrial Fibrillation
- Stable. Continue Plavix. Eliquis stopped one week prior to presentation given fall risk.
- Continue other CV med regimen.
DM-II
- Stable. Hold metformin and repaglinide acutely.
- Follow and cover with SSI as needed.
- Updated A1C 6.6%
Hypokalemia
Hypomagnesemia
History of Cerebral Aneurysm
- Stable. s/p remote coil and CORPORATE ACCOUNTANT shunt.
- CT done in the ED today shows no acute changes.
- Most recent fall was two weeks ago now per patient.
Normocytic Anemia
- Mild decrease from usual baseline. No noted bleeding per patient.
- Check iron studies, etc.
- Follow for changes in H&H.
DVT Prophylaxis: SCDs
Code Status: Full Code
Total discharge time spent to see the patient, examine the patient, review data and lab result, discuss discharge plan with the patient, nursing staff around 65 minutes
Anticipated Discharge: Today
Subjective/Interval History
-
Date of Service: July 24, 2024
No worsening pain
No itching
Objective Data
-
Labs:
Laboratory Results
07/24/24
05:44
Sodium 143
Potassium 3.6
Chloride 103
Carbon Dioxide 24
BUN 27 H
Creatinine 1.2
Glucose 151 H
Calcium 8.5
Vital Signs:
Vital Signs
Temp Pulse Resp BP Pulse Ox
98.2 F 65 18 164/87 98
07/24/24 03:00 07/24/24 03:00 07/24/24 03:00 07/24/24 03:00 07/24/24 04:00
I&O
07/23/24 07/24/24 07/25/24
06:59 06:59 06:59
Intake Total 240 / 240 780 / 780
Output Total 1570 / 1570
Balance -1330 / -1330 780 / 780
--- NOTE | 2024-07-24 10:15 | CM ---
IMM explained & signed. In chart
PT rec Home Health
Spoke with patient and Kelsi - agreeable with [facility]
Left message with Liaison Sanam Luna @ [facility]
Referral entered in [facility]
PLAN: home with [facility]
to transport
[2024-07-24 11:15] VITALS: BP 108/73; BP 137/86; BP 139/74; PULSE 64; PULSE 76; PULSE 88
[2024-07-24 11:50] LABS: Glucose - Point of Care 182 mg/dl (70-99)
--- NOTE | 2024-07-24 14:23 | W.DCSUMMARY ---
Discharge Summary
Discharge Data
Date of Admission: 07/23/24
Date of Discharge: 07/24/24
-
Pending Results: No
Hospital Course
84 years old male presented to the emergency room with weakness and history of falls. Patient noted exertional shortness of breath. No chest pain or cough. No hypoxia. Patient was noted to have renal insufficiency with creatinine around 1.4.
Chest x-ray showed mild to moderate cardiomegaly with mild pulmonary congestion. Echocardiogram showed LVEF 50 to 55%, mild hypokinesia of the basal inferior/inferolateral wall, moderate mitral regurgitation with mild pulmonary hypertension.
Echocardiogram findings showed improvement from a prior study. Patient received short course of intravenous Lasix. His breathing and renal function improved. Scan of the head did not show acute findings. Patient was evaluated by physical therapy
recommended home health services. Vitamin B12 level was low and was given intramuscular injection of cyanocobalamin. Patient remained hemodynamically stable. He was discharged home in a stable condition.
Discharge Plan
-
Patient Disposition: Home with Home Care
Discharge Diagnosis/Procedures: Acute on Chronic HFpEF. You are given diuretic. You can go back on your cardiac medications. Follow-up with your director of market analysis in 2 to 3 weeks
Gait dysfunction
Vitamin B12 deficiency
Diet: Low Sodium and Diabetic, Carb Controlled
Referrals:
Vicky Thomas DO [Family Provider] -
Prescriptions:
New
cyanocobalamin (vitamin B-12) [Vitamin B-12] 1,000 mcg tablet
1,000 mcg PO DAILY Qty: 30 0RF
Continued
atorvastatin 40 mg Tablet
40 mg PO QPM
carvedilol 25 mg Tablet
25 mg PO BID
amiodarone 200 mg Tablet
200 mg PO DAILY
famotidine 40 mg Tablet
40 mg PO DAILY
ezetimibe 10 mg Tablet
10 mg PO DAILY
Patient Comments:
08/13/2023, last filled on 03/09/2023 for 90-day supply.
metformin 1,000 mg Tablet
1,000 mg PO BID
Patient Comments:
08/13/2023, last filled on 03/06/2023 for 90-day supply.
fluoride (sodium) [PreviDent 5000 Booster Plus] 1.1 % Paste
1 applic DENTAL DAILY
Entresto 49-51 mg Tablet
1 tab PO Q12H
clopidogrel [Plavix] 75 mg Tablet
75 mg PO DAILY Qty: 0 0RF
Rx Instructions:
should re-engage director of market analysis in August for discontinuation and for solely being placed on Apixaban alone
furosemide 40 mg Tablet
40 mg PO SUMOTUTHFR
amlodipine 5 mg Tablet
5 mg PO DAILY
tramadol 50 mg Tablet
50 mg PO Q6H PRN (Reason: Pain)
repaglinide 0.5 mg Tablet
0.5 mg PO BID
cholecalciferol (vitamin D3) 25 mcg (1,000 unit) Tablet
25 mcg PO DAILY
Discharge Orders:
Discharge Patient (As Directed); Ordered 07/24/24
Ordered By: Juana Suarez
Discharge Date and Time
Discharge Date/Time: 07/24/24 12:36
Print Language: LUX[place]
--- NOTE | 2024-07-24 15:46 | W.PN.UPDATE ---
Update Note
Progress Note Update
Received a text from nurse that son wanted update about discharge/diagnosis after patient was discharged. Discharge directions were reviewed with patient and his . Son is Nixon Reynoso [phone]
Patient gave permission to speak to son over the phone. Discussed with son Nixon and recommended Outpatient workup for gait dysfunction that has been going on with patient over several months. Recommended outpatient neurology evaluation if primary
doctor agrees to that. Given contact information for [facility] neurologist and [place] neurologist/[facility].
Son was appreciative. Also advised the son to add his name and number to patient's contact list.
== END 2024-07-24 12:36 | disposition home health service (06) | DRG 291 ==
LOC: 3 WEST ACU 11:02
PROVIDERS: Emergency Medicine; Hospitalist; ADMITTING PHYSICIAN Hospitalist; ATTENDING PHYSICIAN Internal Medicine; EMERGENCY PHYSICIAN Student in an Organized Health Care Education/Training Program; FAMILY PHYSICIAN Internal Medicine
DX: I11.0 Hypertensive heart disease with heart failure (principal); I50.33 Acute on chronic diastolic (congestive) heart failure; N17.9 Acute kidney failure, unspecified; R29.6 Repeated falls; I25.10 Atherosclerotic heart disease of native coronary artery without angina pectoris; E11.9 Type 2 diabetes mellitus without complications; I27.20 Pulmonary hypertension, unspecified; I34.0 Nonrheumatic mitral (valve) insufficiency; E53.8 Deficiency of other specified B group vitamins; I48.0 Paroxysmal atrial fibrillation; Z79.02 Long term (current) use of antithrombotics/antiplatelets; Z95.5 Presence of coronary angioplasty implant and graft; Z79.84 Long term (current) use of oral hypoglycemic drugs
CPT/HCPCS: 70450; 71046; 80048; 80053; 81003; 81015; 82607; 82962; 83036; 83540; 83550; 83735; 83880; 84443; 85025; 85027; 87086; 93005; 93306; 96360; 97163; 97167; 97530; 99285

== ENCOUNTER 2024-12-20 14:31 | Outpatient (RCR) | payer MEDICARE, OTHER, SELFPAY | END 2024-12-20 23:59 | disposition home or self-care (01) | LOC: RPT 14:31 | PROVIDERS: ATTENDING PHYSICIAN Internal Medicine | DX: R26.89 Other abnormalities of gait and mobility (principal); R26.9 Unspecified abnormalities of gait and mobility; Z73.6 Limitation of activities due to disability; R26.2 Difficulty in walking, not elsewhere classified; R29.6 Repeated falls | CPT/HCPCS: 97110; 97163; 97530 ==

== ENCOUNTER 2025-01-19 12:52 | Outpatient (RCR) | payer MEDICARE, OTHER, SELFPAY | END 2025-01-19 23:59 | disposition home or self-care (01) | LOC: RPT 12:52 | PROVIDERS: ATTENDING PHYSICIAN Internal Medicine | DX: R26.89 Other abnormalities of gait and mobility (principal); Z73.6 Limitation of activities due to disability; R26.2 Difficulty in walking, not elsewhere classified; M62.81 Muscle weakness (generalized); R29.6 Repeated falls; R26.9 Unspecified abnormalities of gait and mobility | CPT/HCPCS: 97110; 97112; 97530 ==

== ENCOUNTER 2025-02-09 10:29 | Outpatient (RCR) | payer MEDICARE, OTHER, SELFPAY | END 2025-02-14 23:59 | disposition home or self-care (01) | LOC: RPT 10:29 | PROVIDERS: ATTENDING PHYSICIAN Internal Medicine | DX: R26.89 Other abnormalities of gait and mobility (principal); Z73.6 Limitation of activities due to disability; R26.2 Difficulty in walking, not elsewhere classified; M62.81 Muscle weakness (generalized); R29.6 Repeated falls; R26.9 Unspecified abnormalities of gait and mobility | CPT/HCPCS: 97110; 97112; 97530 ==

== ENCOUNTER 2025-03-14 09:50 | Outpatient (RCR) | payer MEDICARE, OTHER, SELFPAY | END 2025-03-14 23:59 | disposition home or self-care (01) | LOC: RPT 09:50 | PROVIDERS: ATTENDING PHYSICIAN Internal Medicine | DX: R26.89 Other abnormalities of gait and mobility (principal); Z73.6 Limitation of activities due to disability; R26.2 Difficulty in walking, not elsewhere classified; M62.81 Muscle weakness (generalized); R29.6 Repeated falls; R26.9 Unspecified abnormalities of gait and mobility | CPT/HCPCS: 97110; 97530 ==